=== PATIENT | female | born 1980 | race Caucasian/White ===

== ENCOUNTER 2020-03-20 06:56 | Outpatient (NON) | payer OTHER, SELFPAY ==
[2020-03-20 22:28] LABS: SARS-CoV-2 RNA PCR Negative
== END 2020-03-20 06:57 ==
PROVIDERS: PCP Family Medicine; Visit Provider Physician Assistant
DX: Z20.822 Contact with and (suspected) exposure to COVID-19 (principal)
CPT/HCPCS: C9803; U0003; U0005

== ENCOUNTER → 2020-11-12 04:39 | Outpatient (CLI) | payer OTHER, SELFPAY ==
[2020-11-12 18:26] LABS: SARS-CoV-2 RNA PCR Negative
== END ==
PROVIDERS: PCP Family Medicine; Visit Provider Family Medicine
DX: R10.84 Generalized abdominal pain (principal); R53.82 Chronic fatigue, unspecified
CPT/HCPCS: C9803; U0003; U0005

== ENCOUNTER 2020-11-24 14:13 | Outpatient (CLI) | payer OTHER, SELFPAY | END 2020-11-24 14:14 | disposition home or self-care (01) | LOC: ANHAUDIO 14:15 | PROVIDERS: PCP Family Medicine; Visit Provider Family Medicine | DX: H91.90 Unspecified hearing loss, unspecified ear (principal) | CPT/HCPCS: 92557; 92567 ==

== ENCOUNTER → 2021-03-02 07:42 | Outpatient (CLI) | payer OTHER, SELFPAY ==
[2021-03-03 01:23] LABS: SARS-CoV-2 RNA PCR Positive
== END ==
PROVIDERS: PCP Family Medicine; Visit Provider Family Medicine
DX: U07.1 COVID-19 (principal)
CPT/HCPCS: C9803; U0003; U0005

== ENCOUNTER → 2023-04-05 13:38 | Outpatient (CLI) | payer BC, SELFPAY ==
--- NOTE | ~2023-04-05 | MM_ITS ---
EXAMINATION: MM screening alireza BI w richardson HISTORY: Line screening mammogram TECHNIQUE: Craniocaudal and mediolateral oblique 3-D tomosynthesis images were obtained and synthetic 2-D images were generated. CAD analysis was submitted and interpreted. COMPARISON: None, baseline BREAST PARENCHYMAL COMPOSITION: There are scattered areas of fibroglandular density. FINDINGS: RIGHT BREAST: A focal asymmetry is present in the posterior third of the outer breast 7 cm from the n ipple. LEFT BREAST: An asymmetry is present in the posterior third of the breast 8 cm deep to, and in line w ith, the nipple on the mediolateral oblique view. IMPRESSION: 1. Bilateral breast findings as above. 2. Additional mammographic views and possible breast ultrasound are recommended. BI-RADS Category 0: Incomplete: Needs additional imaging evaluation. Reviewed, dictated and finalized at location A. OP CONSULTANT IMPRESSION: 1. Bilateral breast findings as above. 2. Additional mammographic views and possible breast ultrasound are recommended . BI-RADS Category 0: Incomplete: Needs additional imaging evaluation.
== END ==
PROVIDERS: PCP Obstetrics & Gynecology; Visit Provider Obstetrics & Gynecology
DX: Z12.31 Encounter for screening mammogram for malignant neoplasm of breast (principal); R92.8 Other abnormal and inconclusive findings on diagnostic imaging of breast
CPT/HCPCS: 77063; 77067

== ENCOUNTER 2023-10-24 08:40 | Outpatient (CLI) | payer BC, SELFPAY ==
--- NOTE | ~2023-10-24 | MMUS_ITS ---
EXAMINATION: MM diagnostic alireza BI w richardson, US breast RT limited HISTORY: Follow-up breast asymmetry TECHNIQUE: Additional 3-D tomosynthesis images of breasts were performed and synthetic 2-D images wer e generated. CAD analysis was submitted and interpreted. High resolution Limited right breast ultraso und was performed. COMPARISON: 04/05/2023 BREAST PARENCHYMAL COMPOSITION: Not dense: There are scattered areas of fibroglandular density. FINDINGS: MAMMOGRAPHIC FINDINGS: There are no suspicious masses, calcifications or architectural distortion in the right breast to sug gest malignancy. Bilateral breast asymmetries are not apparent on current study. ULTRASOUND: Limited right breast ultrasound: Normal heterogeneous echotexture without focal solid or cystic mass. IMPRESSION: 1. No evidence for malignancy in either breast. 2. Routine yearly screening mammogram and regular clinical breast examination are recommended. BI-RADS Category 1: Negative Reviewed, dictated and finalized at location B. IMPRESSION: 1. No evidence for malignancy in either breast. 2. Routine yearly screening mammogram and regular clinical breast examination a re recommended. BI-RADS Category 1: Negative
== END 2023-10-24 08:41 | disposition home or self-care (01) ==
PROVIDERS: PCP Family Medicine; Visit Provider Obstetrics & Gynecology
DX: R92.8 Other abnormal and inconclusive findings on diagnostic imaging of breast (principal)
CPT/HCPCS: 76642; 77062; 77066; G0279

== ENCOUNTER 2023-12-26 09:12 | Emergency (ER) | payer BC, SELFPAY ==
[2023-12-26 09:22] VITALS: BP 134/89; PULSE 88; RESP 16; TEMP 37; O2SAT 99
--- NOTE | 2023-12-26 09:30 | ED.ABDPAIN ---
HPI - Abdominal Pain General Chief Complaint: Abdominal Pain Stated Complaint: sent from for abdominal pain Time Seen by Provider: 12/26/23 09:16 History of Present Illness HPI narrative: patient has been having some abdominal discomfort intermittently for the last 2 weeks, was seen at urgent care, had normal urine labs, wanted to make sure everything was okay so came in here. Related Data Home Medications Medication Instructions Recorded Confirmed L.acid,ozzy-B.animal,bifid,infant 1 cap PO DAILY 03/31/22 12/26/23 50 billion cell capsule,delayed rel (Fortify [place] Women Probiotic) fluticasone fur. 100 mcg-umeclid 1 inh inhalation DAILY 03/31/22 12/26/23 62.5 mcg-vilant 25 mcg inhalat.powder (Trelegy Ellipta) levomefolate calcium 15 mg tablet 15 mg PO DAILY 03/31/22 12/26/23 (L-Methylfolate) omega 3-ume-tzr-fish oil 1,000 mg 1 cap PO DAILY 03/31/22 12/26/23 (120 mg-180 mg) capsule (Fish Oil) propranolol 60 mg capsule,24 60 mg PO DAILY 03/31/22 12/26/23 hr,extended release ropinirole 0.5 mg tablet 0.5 mg PO TID 12/26/23 12/26/23 sertraline 100 mg tablet 50 mg PO DAILY 12/26/23 12/26/23 tamsulosin 0.4 mg capsule 0.4 mg PO DAILY 12/26/23 12/26/23 ziprasidone HCl 20 mg capsule 20 mg PO BID 12/26/23 12/26/23 Allergies Allergy/AdvReac Type Severity Reaction Status Date / Time Penicillins AdvReac Mild Rash Verified 12/26/23 09:12 Sulfa (Sulfonamide AdvReac Mild Rash Verified 12/26/23 09:12 Antibiotics) Review of Systems Review of Systems: All systems reviewed & are unremarkable except as noted in HPI and below PMFSH Past Medical History Medical History Allergic rhinitis Bipolar 1 disorder Chronic fatigue, unspecified Cigarette nicotine dependence without complication Fibromyalgia (Unknown) GERD (gastroesophageal reflux disease) Insomnia Mild persistent asthma Obstructive sleep apnea Pure hyperglyceridemia Restless leg syndrome Type 2 diabetes mellitus without complications Surgical History Surgical History History of hernia repair Family History Family History Father Hypertension Diabetes mellitus Hyperlipidemia Mother Hypertension Alcoholism Grandparent Cirrhosis Carcinoma of colon Cerebrovascular accident Diabetes mellitus Social History Social History Smoking status: Current some day smoker Tobacco type: e-cigarettes/vaping Second hand tobacco smoke exposure: No Alcohol intake: current Drinks per week: 1 Alcohol use details: social Substance use: never Substance use type: does not use Do You Feel Safe in your Home?: Yes Lack of Transportation: No Lack of Food: Never True Current Housing: I Have Housing Concerned About Future Housing: No Difficulty Paying Gas/Electric Bills: No Difficulty Paying for Meds: No Currently Unemployed: No Education: Master's Degree or Higher Difficulty w/ Childcare or Family Care: No Living arrangements: with family Occupation/Education: unemployed Gender identity (if verbalized by the patient): Female Sexual Orientation (if Verbalized by the Patient): Straight or Heterosexual Spiritual care concerns: No Exam Narrative: EXAMINATION OF ORGAN SYSTEMS/BODY AREAS: Constitutional: Vital signs per nursing GENERAL:[No acute distress, non-toxic appearing.] HEAD: Normal with no signs of head trauma. EYES: EOMI, conjunctiva normal ENT: Hearing grossly intact LUNGS: Nonlabored breathing. HEART: [Regular rate and rhythm] ABD: [Soft], [nontender to palpation] EXT: Normal range of motion SKIN: [No rashes or lesions.] NEURO: [Alert and oriented x 3. No gross focal sensory or strength deficits.] PSYCH: Normal affect Course Vital Signs Vital signs: Vital Signs Temperature 98.6 F 12/26/23 09:22 Pulse Rate 88 12/26/23 09:22 Respiratory Rate 16 12/26/23 09:22 Blood Pressure 134/89 12/26/23 09:22 Pulse Oximetry 99 12/26/23 09:22 Temperature 98.6 F 12/26/23 09:22 Pulse Rate 88 12/26/23 09:22 Respiratory Rate 16 12/26/23 09:22 Blood Pressure 134/89 12/26/23 09:22 Pulse Oximetry 99 12/26/23 09:22 MDM - Abdominal Pain MDM Narrative Medical decision making narrative: Electronic medical record was reviewed. Patient presented to the ED with complaint of [abdominal pain for a few weeks]. Vitals [were within acceptable limits]. Physical exam revealed soft having without much tenderness. Based on the patient's history and physical exam, my differential includes but is not limited to [gastritis, gastroenteritis, Doubt cholecystitis, pancreatitis, or appendicitis without focal tenderness]. [IV access was established by nursing staff]. CBC, BMP, lipase, LFTs, bilirubin and alk phos were obtained. Labs were pertinent for all labs within acceptable limits. findings discussed with the patient. There were no witnessed episodes of vomiting in the emergency department. They are not complaining of any new abdominal pain. Repeat examination did not show any significant guarding or rebound. No new tenderness. At this time I do not feel there is any further emergent treatment to be provided. The patient was given strict return precautions, if they are to develop any worsening abdominal pain, vomiting, or blood in the vomit they are to return to the emergency department immediately. Patient verbally acknowledges understanding these directions. [The patient was informed of the above diagnostic test findings.] \ They will be discharged home [with prescriptions]. They were advised to follow-up with [their PCP] in 2 days. The patient feels that this is appropriate medical decision making and verbalizes an understanding of the discharge instructions. Lab Data 12/26/23 09:42 12/26/23 09:42 Labs: Lab Results 12/26/23 12/26/23 Range/Units 09:42 09:43 WBC 9.2 (4.5-10.0) K/mm3 RBC 4.52 (4.2-5.4) M/mm3 Hgb 13.8 (12.0-15.0) g/dL Hct 40.9 (37.0-47.0) % MCV 90.5 (80-100) fl MCH 30.5 (26-34) pg MCHC 33.7 (32-36) g/dl RDW 13.4 (11.5-14.5) % Plt Count 168 (150-375) k/mm3 MPV 10.1 (7.4-10.4) fl Immature Gran % (Auto) 1.5 H (0-0.5) % Neut % (Auto) 69.8 (45.5-73.1) % Lymph % (Auto) 17.7 L (18.3-44.2) % [place] % (Auto) 6.5 (2.6-8.5) % Eos % (Auto) 4.0 (0-4.4) % Baso % (Auto) 0.5 (0.2-1.2) % Lymph # (Auto) 1.63 (0.9-3.2) K/mm3 [place] # (Auto) 0.6 (0.1-0.6) K/mm3 Eos # (Auto) 0.4 H (0-0.3) K/mm3 Baso # (Auto) 0.1 (0.0-0.1) K/mm3 Abs Immat Gran (auto) 0.14 H (0.00-0.031) K/mm3 Absolute Neuts (auto) 6.4 (1.3-6.7) K/mm3 Absolute Nucleated RBC 0.000 (0.0-0.012) K/mm3 Nucleated RBC % 0.0 (0.0-0.2) % Sodium 137 (137-145) mmol/L Potassium 4.0 (3.4-5.0) mmol/L Chloride 105 (98-107) mmol/L Carbon Dioxide 26 (22-30) mmol/L Anion Gap 6 (4-12) mmol/L BUN 7 (7-17) mg/dL Creatinine 0.60 L (0.7-1.0) mg/dL Estim Creat Clear Calc 109 ml/min Estimated GFR > 60 (59 - ) Glucose 104 (65-110) mg/dL Calcium 9.6 (8.4-10.2) mg/dL Total Bilirubin 0.4 (0.2-1.3) mg/dL AST 36 (14-36) U/L ALT 40 H (6-35) U/L Alkaline Phosphatase 65 (38-126) U/L Total Protein 7.0 (6.3-8.2) g/dL Albumin 4.2 (3.5-5.1) g/dL Lipase 118 (23-300) U/L Urine Color Yellow (Yellow) Urine Appearance Clear (Clear) Urine pH 7.0 (5.0-9.0) Ur Specific [place] 1.008 (1.001-1.035) Urine Protein Negative (Negative) mg/dL Urine Glucose (UA) Negative (Negative) mg/dL Urine Ketones Negative (Negative) mg/dL Ur Blood (Man) Negative (Negative) Urine Nitrate Negative (Negative) Urine Bilirubin Negative (Negative) Urine Urobilinogen 0.2 (<2.0) mg/dL Leukocyte Esterase Rfl Negative (Negative) CECE/UL Discharge Plan Discharge Clinical Impression: Abdominal pain Patient Disposition: Home, Self-Care Condition: Stable Instructions: Abdominal Pain (ED) Additional Instructions: Please follow up with your doctor; you can always return for any further issues. Prescriptions: New famotidine 20 mg tablet 20 mg PO DAILY Qty: 30 0RF dicyclomine 20 mg tablet 20 mg PO TID PRN (Reason: abdominal pain) Qty: 30 0RF alum-mag hydroxide-simeth [Maalox Advanced] 200-200-20 mg/5 mL suspension 10 ml PO QID PRN (Reason: dyspepsia) Qty: 200 0RF Rx Instructions: administer between meals and at bedtime No Action ropinirole 0.5 mg tablet 0.5 mg PO TID ziprasidone HCl 20 mg capsule 20 mg PO BID tamsulosin 0.4 mg capsule 0.4 mg PO DAILY sertraline 100 mg tablet 50 mg PO DAILY propranolol 60 mg capsule,extended release 24 hr 60 mg PO DAILY Trelegy Ellipta 100-62.5-25 mcg blister with device 1 inh inhalation DAILY Fortify [place] Women Probiotic 50 billion cell capsule,delayed release(DR/EC) 1 cap PO DAILY omega 9-spe-una-fish oil [Fish Oil] 1,000 mg (120 mg-180 mg) capsule 1 cap PO DAILY levomefolate calcium [L-Methylfolate] 15 mg tablet 15 mg PO DAILY pantoprazole 40 mg tablet,delayed release (DR/EC) 40 mg PO QAM Qty: 90 1RF lithium carbonate 300 mg tablet extended release 300 mg PO BID Qty: 180 0RF montelukast 10 mg tablet 10 mg PO DAILY Qty: 90 1RF tizanidine 2 mg tablet 2 mg PO TID PRN (Reason: muscle spasticity) Qty: 90 5RF fluticasone propionate 50 mcg/actuation spray,suspension 1 spray intranasal DAILY Qty: 48 0RF Rx Instructions: administer into each nostril Ozempic 0.25 mg or 0.5 mg (2 mg/3 mL) pen injector See Rx Instructions .ROUTE .COMPLEX Qty: 3 6RF Dose Instruction: ADMINISTER 0.5 MG UNDER THE SKIN WEEKLY FOR 4 WEEKS Rx Instructions: ADMINISTER 0.5 MG UNDER THE SKIN WEEKLY FOR 4 WEEKS clonazepam 1 mg tablet 1 mg PO TID Qty: 90 0RF Follow-up/Referrals: Austin Longoria MD [Primary Care Provider] - 2 Days
[2023-12-26 09:48] LABS: Basophils Absolute Auto 0.1 K/mm3 (0.0-0.1); Basophils Percent Auto 0.5 % (0.2-1.2); Eosinophils Absolute Auto 0.4 K/mm3 (0-0.3); Hematocrit 40.9 % (37.0-47.0); Hemoglobin 13.8 g/dL (12.0-15.0); Immature Granulocyte Absolute 0.14 K/mm3 (0.00-0.031); Immature Granulocyte Percent A 1.5 % (0-0.5); Lymphocytes Absolute Auto 1.63 K/mm3 (0.9-3.2); Lymphocytes Percent Auto 17.7 % (18.3-44.2); Mean Corpuscular HGB Conc 33.7 g/dl (32-36); Mean Corpuscular Hemoglobin 30.5 pg (26-34); Mean Corpuscular Volume 90.5 fl (80-100); Mean Platelet Volume 10.1 fl (7.4-10.4); Monocytes Absolute Auto 0.6 K/mm3 (0.1-0.6); Monocytes Percent Auto 6.5 % (2.6-8.5); Neutrophils Absolute Auto 6.4 K/mm3 (1.3-6.7); Neutrophils Percent Auto 69.8 % (45.5-73.1); Platelet Count Result 168 k/mm3 (150-375); Red Blood Count 4.52 M/mm3 (4.2-5.4); Red Cell Distribution Width 13.4 % (11.5-14.5); White Blood Count 9.2 K/mm3 (4.5-10.0)
[2023-12-26 09:52] LABS: Add Urine Microscopic? NO; Appearance Urine Clear (Clear); Bilirubin Urine Negative (Negative); Blood Urine Negative (Negative); Color Urine Yellow (Yellow); Glucose Urine UA Negative (Negative); Ketones Urine Negative (Negative); Leukocyte Esterase Ur Negative LEU/UL (Negative); Nitrate Urine Negative (Negative); Protein Urine Negative (Negative); Specific Grav Ur 1.008 (1.001-1.035); Urobilinogen Urine 0.2 mg/dL (<2.0)
[2023-12-26 10:02] LABS: Alanine Aminotransferase 40 U/L (6-35); Albumin Level 4.2 g/dL (3.5-5.1); Alkaline Phosphatase 65 U/L (38-126); Anion Gap 6 mmol/L (4-12); Aspartate Amino Transferase 36 U/L (14-36); Bilirubin,Total 0.4 mg/dL (0.2-1.3); Blood Urea Nitrogen 7 mg/dL (7-17); Calcium 9.6 mg/dL (8.4-10.2); Carbon Dioxide 26 mmol/L (22-30); Chloride 105 mmol/L (98-107); Estimated CRCL calculation 109 ml/min; Estimated Glomerular Filt Rate > 60; Glucose 104 mg/dL (65-110); Lipase 118 U/L (23-300); Sodium 137 mmol/L (137-145)
== END 2023-12-26 10:54 | disposition home or self-care (01) ==
PROVIDERS: Emergency Provider Emergency Medicine; PCP Family Medicine
DX: R10.9 Unspecified abdominal pain (principal); E11.9 Type 2 diabetes mellitus without complications; F17.290 Nicotine dependence, other tobacco product, uncomplicated; Z79.899 Other long term (current) drug therapy
CPT/HCPCS: 36415; 80053; 81003; 83690; 85025; 99283

== ENCOUNTER 2024-04-30 13:15 | Emergency (ER) | payer OTHER, SELFPAY ==
--- NOTE | ~2024-04-30 | CT_ITS ---
EXAMINATION: CT abdomen pelvis w con DATE: 04/30/2024 16:02 INDICATION: Nausea, vomiting, and diarrhea. Leukocytosis. TECHNIQUE: Computed tomography (CT) of the abdomen and pelvis was performed with 100 mL Omnipaque 350 intravenous contrast. Automated exposure control and iterative reconstruction technique were employe d. The dose-length product was 833.96 mGy-cm. COMPARISON: CT abdomen and pelvis 03/21/2005 FINDINGS: The visualized portions of lung bases demonstrate mild atelectasis. No pleural effusion. Th e heart size is normal. No pericardial effusion. There is diffuse hepatic steatosis. The gallbladder, spleen, pancreas, adrenal glands, and right kidney are normal. There is a 7 mm cyst in left kidney. There are no dilated loops of bowel. The appendix is normal. There is liquid stool in the colon corre lating with the symptom of diarrhea. There are no pathologically enlarged lymph nodes. There is no fr ee intraperitoneal fluid. There is mild thoracic and lumbar spondylosis. IMPRESSION: 1. No etiology for the patient's symptoms. Reviewed, dictated and finalized at location B.
[2024-04-30 13:17] VITALS: BP 114/81; PULSE 97; RESP 17; TEMP 36.7; O2SAT 98
[2024-04-30 13:57] LABS: BEDSIDEPREGUCG Negative (Negative)
[2024-04-30 13:57] LABS: Basophils Absolute Auto 0.1 K/mm3 (0.0-0.1); Basophils Percent Auto 0.4 % (0.2-1.2); Eosinophils Absolute Auto 0.2 K/mm3 (0-0.3); Eosinophils Percent Auto 1.2 % (0-4.4); Hematocrit 46.7 % (37.0-47.0); Immature Granulocyte Absolute 0.08 K/mm3 (0.00-0.031); Immature Granulocyte Percent A 0.5 % (0-0.5); Lymphocytes Absolute Auto 1.17 K/mm3 (0.9-3.2); Lymphocytes Percent Auto 7.4 % (18.3-44.2); Mean Corpuscular HGB Conc 34.3 g/dl (32-36); Mean Corpuscular Volume 87.5 fl (80-100); Monocytes Absolute Auto 0.8 K/mm3 (0.1-0.6); Monocytes Percent Auto 5.1 % (2.6-8.5); Neutrophils Absolute Auto 13.5 K/mm3 (1.3-6.7); Neutrophils Percent Auto 85.4 % (45.5-73.1); Platelet Count Result 243 k/mm3 (150-375); Red Blood Count 5.34 M/mm3 (4.2-5.4); Red Cell Distribution Width 12.8 % (11.5-14.5); White Blood Count 15.8 K/mm3 (4.5-10.0)
[2024-04-30 14:03] LABS: Add Urine Microscopic? YES; Appearance Urine Turbid (Clear); Bacteria Urine None Seen /hpf; Bilirubin Urine Negative (Negative); Blood Urine 2+ (Negative); Color Urine Dark Yellow (Yellow); Glucose Urine UA Negative (Negative); Ketones Urine 1+ mg/dL (Negative); Leukocyte Esterase Ur Negative LEU/UL (Negative); Nitrate Urine Negative (Negative); Non Pathogenic Casts 0-2; Protein Urine Trace mg/dL (Negative); Specific Grav Ur 1.025 (1.001-1.035); Squamous Epithelial Cell Urine Few /hpf (Few); Urobilinogen Urine 0.2 mg/dL (<2.0); WBC Urine 0-5 /hpf (0-3)
--- NOTE | 2024-04-30 14:10 | ED_ITS ---
HPI - Nausea/Vomiting/Diarrhea General Chief complaint: Nausea/Vomiting/Diarrhea Stated complaint: n/v/d Time Seen by Provider: 04/30/24 13:41 History of Present Illness HPI Narrative: 43-year-old female with a past medical history including bipolar 1, GERD, type 2 diabetes, restless leg syndrome, fibromyalgia. Patient presents to the ED for evaluation of nausea and diarrhea as well as episodes of projectile vomiting. They are intermittent in nature and happen once a week for last several weeks. Recently reported increased dose of Ozempic from 0.5-1. Denies any other recent changes to her regimen her diet. No antibiotic use recently. No fever, chills, abdominal pain. No chest pain shortness a breath. She is otherwise in her normal state of health. Called her primary care provider who referred her to the ER today. Related Data Home Medications ?Medication ?Instructions ?Recorded ?Confirmed ?Last Taken ?Type L.acid,ozzy-B.animal,bifid, 1 cap PO DAILY 03/31/22 03/25/24 Unknown History 50 billion cell capsule,delayed rel (Fortify [place] Women Probiotic) fluticasone fur. 100 mcg-umeclid 1 inh inhalation DAILY 03/31/22 03/25/24 Unknown History 62.5 mcg-vilant 25 mcg inhalat.powder (Trelegy Ellipta) levomefolate calcium 15 mg tablet 15 mg PO DAILY 03/31/22 03/25/24 Unknown History (L-Methylfolate) omega 1-uux-isd-fish oil 1,000 mg 1 cap PO DAILY 03/31/22 03/25/24 Unknown History (120 mg-180 mg) capsule (Fish Oil) propranolol 60 mg capsule,24 60 mg PO DAILY 03/31/22 03/25/24 Unknown History hr,extended release sertraline 100 mg tablet 50 mg PO DAILY 12/26/23 03/25/24 Unknown History brexpiprazole 2 mg tablet (Rexulti) 2 mg PO DAILY 03/25/24 03/25/24 Unknown History cetirizine 10 mg tablet (Zyrtec) 10 mg PO DAILY PRN 03/25/24 03/25/24 Unknown History clonazepam 0.5 mg tablet (Klonopin) 0.5 mg PO TID 03/25/24 03/25/24 Unknown History hydroxyzine HCl 10 mg tablet 10 mg PO TID PRN 03/25/24 03/25/24 Unknown History Allergies Allergy/AdvReac Type Severity Reaction Status Date / Time Penicillins AdvReac Mild Rash Verified 04/30/24 13:23 Sulfa (Sulfonamide AdvReac Mild Rash Verified 04/30/24 13:23 Antibiotics) Review of Systems 2 Review of Systems: As reviewed above in [facility] Past Medical History Medical History Cigarette nicotine dependence in remission Abnormal liver function test Restless leg syndrome Cigarette nicotine dependence without complication Insomnia Fibromyalgia (Unknown) Allergic rhinitis Bipolar 1 disorder Mild persistent asthma GERD (gastroesophageal reflux disease) Obstructive sleep apnea Chronic fatigue, unspecified Type 2 diabetes mellitus without complications Pure hyperglyceridemia Surgical History Surgical History History of hernia repair Family History Family History Father Hypertension Diabetes mellitus Hyperlipidemia Mother Hypertension Alcoholism Grandparent Cirrhosis Carcinoma of colon Cerebrovascular accident Diabetes mellitus Social History Social History Smoking status: Current some day smoker Tobacco type: e-cigarettes/vaping Second hand tobacco smoke exposure: No Alcohol intake: current Drinks per week: 1 Alcohol use details: social Substance use: never Substance use type: does not use Do You Feel Safe in your Home?: Yes Lack of Transportation: No Lack of Food: Never True Current Housing: I Have Housing Concerned About Future Housing: No Difficulty Paying Gas/Electric Bills: No Difficulty Paying for Meds: No Currently Unemployed: No Education: Master's Degree or Higher Difficulty w/ Childcare or Family Care: No Living arrangements: with family Occupation/Education: unemployed Gender identity (if verbalized by the patient): Female Sexual Orientation (if Verbalized by the Patient): Straight or Heterosexual Spiritual care concerns: No Exam 2 Narrative: GENERAL: [Well-appearing, well-nourished, and in no acute distress.] HEAD: [Normocephalic, atraumatic.] EYES: [PERRLA and EOMI.] ENT: Nares clear, no rhinorrhea or epistaxis. Mucous membranes moist. NECK: Supple. CHEST: [Clear to auscultation. No respiratory distress.] HEART: [Regular rate and rhythm]. No murmur heard. [Normal peripheral pulses.] ABDOMEN: [Soft, nondistended], [nontender], [No rigidity or guarding] EXTREMITIES: Normal range of motion. [No edema.] SKIN: Warm, dry, no rash. NEURO: [No focal deficits]. Alert and oriented [x3.] PSYCH: [Normal mood and affect.] Course Vital Signs Vital signs: Vital Signs Temperature 36.7 C 04/30/24 13:17 Pulse Rate 97 04/30/24 13:17 Respiratory Rate 17 04/30/24 13:17 Blood Pressure 114/81 04/30/24 13:17 Pulse Oximetry 98 04/30/24 13:17 Oxygen Delivery Room Air 04/30/24 13:17 Temperature 37.2 C 04/30/24 14:25 Pulse Rate 79 04/30/24 17:31 Respiratory Rate 18 04/30/24 17:31 Blood Pressure 107/80 04/30/24 17:31 Pulse Oximetry 97 04/30/24 17:31 Oxygen Delivery Room Air 04/30/24 13:17 MDM - Nausea/Vomiting/Diarrhea MDM Narrative Medical decision making narrative: 43-year-old female with history of GERD, bipolar depression, type 2 diabetes, nicotine abuse, fibromyalgia. Patient presents to the ER for nonspecific nausea, vomiting and diarrhea there are intermittent in nature for last several weeks. She states that about once a week she has an episode of projectile vomiting and diarrhea that resolves the next time she has to go the bathroom. She has normal bouts of regular bowel movements without any nauseousness or vomiting for several days. Recent dose increase on her Ozempic. Denies any abdominal pain. She has a soft nontender nondistended abdomen. Normal vital signs. No tachycardia, fever, hypoxia blood pressure concerns. Considerations presently are for potential side effect Ozempic, electrolyte disturbances, irritable bowel disease. Low suspicion intra-abdominal process such as obstruction given her reassuring vitals, reassuring exam and no persistent symptoms. Viral syndrome gastroenteritis also possible. Workup ordered including CBC, CMP, lipase, urinalysis. Presently she is asymptomatic with normal vital signs. No needed interventions at this time. Workup shows a small leukocytosis of 15.8, hemoglobin 16.0 likely hemoconcentrated. Normal platelets. Electrolytes showed normal potassium, sodium and chloride. Normal renal function, normal glucose and LFTs. Urine without signs of infection. Negative test. CT scan was ordered secondary to the leukocytosis to see if there is any infectious or intra- abdominal pathology. CT shows no evidence of any acute findings. Patient remained hemodynamically stable here without any nausea vomiting or diarrhea. She will be sent home with as needed Zofran and referred back to her PCP. Medical Records Attestation: I reviewed the patient's medical records. Lab Data Attestation: I reviewed the patient's lab results. 04/30/24 13:44 04/30/24 13:44 Labs: Lab Results 04/30/24 04/30/24 Range/Units 13:44 13:54 WBC 15.8 H (4.5-10.0) K/mm3 RBC 5.34 (4.2-5.4) M/mm3 Hgb 16.0 H (12.0-15.0) g/dL Hct 46.7 (37.0-47.0) % MCV 87.5 (80-100) fl MCH 30.0 (26-34) pg MCHC 34.3 (32-36) g/dl RDW 12.8 (11.5-14.5) % Plt Count 243 (150-375) k/mm3 MPV 10.0 (7.4-10.4) fl Immature Gran % (Auto) 0.5 (0-0.5) % Neut % (Auto) 85.4 H (45.5-73.1) % Lymph % (Auto) 7.4 L (18.3-44.2) % [place] % (Auto) 5.1 (2.6-8.5) % Eos % (Auto) 1.2 (0-4.4) % Baso % (Auto) 0.4 (0.2-1.2) % Lymph # (Auto) 1.17 (0.9-3.2) K/mm3 [place] # (Auto) 0.8 H (0.1-0.6) K/mm3 Eos # (Auto) 0.2 (0-0.3) K/mm3 Baso # (Auto) 0.1 (0.0-0.1) K/mm3 Abs Immat Gran (auto) 0.08 H (0.00-0.031) K/mm3 Absolute Neuts (auto) 13.5 H (1.3-6.7) K/mm3 Absolute Nucleated RBC 0.000 (0.0-0.012) K/mm3 Nucleated RBC % 0.0 (0.0-0.2) % Sodium 141 (137-145) mmol/L Potassium 4.2 (3.4-5.0) mmol/L Chloride 105 (98-107) mmol/L Carbon Dioxide 19 L (22-30) mmol/L Anion Gap 17 H (4-12) mmol/L BUN 15 D (7-17) mg/dL Creatinine 0.74 (0.7-1.0) mg/dL Estim Creat Clear Calc 94 ml/min Estimated GFR > 60 (59 - ) Glucose 125 H (65-110) mg/dL Calcium 9.8 (8.4-10.2) mg/dL Total Bilirubin 1.2 (0.2-1.3) mg/dL AST 36 (14-36) U/L ALT 50 H (6-35) U/L Alkaline Phosphatase 83 (38-126) U/L Total Protein 8.0 (6.3-8.2) g/dL Albumin 5.2 H (3.5-5.1) g/dL Lipase 87 (23-300) U/L Urine Color Dark yellow (Yellow) Urine Appearance Turbid H (Clear) Urine pH 5.0 (5.0-9.0) Ur Specific [place] 1.025 (1.001-1.035) Urine Protein Trace (Negative) mg/dL Urine Glucose (UA) Negative (Negative) mg/dL Urine Ketones 1+ H (Negative) mg/dL Ur Blood (Man) 2+ H (Negative) Urine Nitrate Negative (Negative) Urine Bilirubin Negative (Negative) Urine Urobilinogen 0.2 (<2.0) mg/dL Leukocyte Esterase Rfl Negative (Negative) CECE/UL Urine RBC 3-5 H (0-2) /hpf Urine WBC 0-5 (0-3) /hpf Ur Squamous Epith Cells Few (Few) /hpf Urine Bacteria None seen /hpf Urine Casts 0-2 POC Urine HCG, Qual Negative (Negative) Imaging Data Attestation: I personally reviewed and interpreted this imaging study as follows: My impression: Impressions Abdomen/Pelvis CT 04/30/24 16:04 IMPRESSION: 1. No etiology for the patient's symptoms. Discharge Plan Discharge Clinical Impression: Nausea & vomiting, Diarrhea Patient Disposition: Home, Self-Care Condition: Stable Instructions: Antibiotic Form, Acute Nausea and Vomiting (ED), Acute Diarrhea (ED) Additional Instructions: Your CT scan and laboratory studies were very reassuring. No urgent or emergent concerns. Call your regular doctor for close follow-up as this could be secondary to your Ozempic. We will send you home with Cassie as needed. Return with any new or worsening concerns at any time. Patient Language: Kiswahili Prescriptions: New ondansetron 4 mg tablet,disintegrating 4 mg PO Q8H PRN (Reason: nausea and vomiting) Qty: 10 0RF No Action sertraline 100 mg tablet 50 mg PO DAILY cetirizine [Zyrtec] 10 mg tablet 10 mg PO DAILY PRN Rexulti 2 mg tablet 2 mg PO DAILY hydroxyzine HCl 10 mg tablet 10 mg PO TID PRN clonazepam [Klonopin] 0.5 mg tablet 0.5 mg PO TID propranolol 60 mg capsule,extended release 24 hr 60 mg PO DAILY Trelegy Ellipta 100-62.5-25 mcg blister with device 1 inh inhalation DAILY Fort[employer] Probiotic 50 billion cell capsule,delayed release(DR/EC) 1 cap PO DAILY omega 2-ufu-ivj-fish oil [Fish Oil] 1,000 mg (120 mg-180 mg) capsule 1 cap PO DAILY levomefolate calcium [L-Methylfolate] 15 mg tablet 15 mg PO DAILY tizanidine 2 mg tablet 2 mg PO TID PRN (Reason: muscle spasticity) Qty: 90 5RF pantoprazole 40 mg tablet,delayed release (DR/EC) 40 mg PO QAM Qty: 90 1RF fluticasone propionate 50 mcg/actuation spray,suspension 1 spray intranasal DAILY Qty: 48 0RF Rx Instructions: administer into each nostril Ozempic 1 mg/dose (4 mg/3 mL) pen injector 1 mg subcut WEEKLY Qty: 3 0RF Follow-up/Referrals: Austin Longoria MD [Primary Care Provider] - Time of Disposition: 17:52
[2024-04-30 14:11] LABS: Alanine Aminotransferase 50 U/L (6-35); Albumin Level 5.2 g/dL (3.5-5.1); Alkaline Phosphatase 83 U/L (38-126); Anion Gap 17 mmol/L (4-12); Aspartate Amino Transferase 36 U/L (14-36); Bilirubin,Total 1.2 mg/dL (0.2-1.3); Blood Urea Nitrogen 15 mg/dL (7-17); Calcium 9.8 mg/dL (8.4-10.2); Carbon Dioxide 19 mmol/L (22-30); Chloride 105 mmol/L (98-107); Estimated CRCL calculation 94 ml/min; Estimated Glomerular Filt Rate > 60; Glucose 125 mg/dL (65-110); Lipase 87 U/L (23-300); Potassium 4.2 mmol/L (3.4-5.0); Sodium 141 mmol/L (137-145)
[2024-04-30 14:25] VITALS: BP 117/82; PULSE 95; RESP 16; TEMP 37.2; O2SAT 97
--- OUTSIDE RECORDS SUMMARY | 2024-04-30 14:50 | XMS_ITS | Data Portability ---
Author Organization [place] [facility] [employer] Address [address] [place] [address] Care Team Providers Care Coal Inspector Name Role Phone JASON WADSWORTH Psychiatrist YOLY FRANCISCO Sleep Medicine Assessment Encounter Date Assessment Date Assessment LastModified by Organization Details LastModified Time 04/05/2022 04/05/2022 Medication Munguia es Caplyta 42 mg qD samples given x 2 weeks ADRY obtained. Records requested labs obtained to check lithium levels along with CBC, CMP. Counseled Kerline on the concern about benzos usage. Anxiety, practice guidelines now recommend psychotherapy approaches and antidepressants as the initial treatment for anxiety. Continued usage of medications increases worsening cognition, delirium, and falls. Benzodiazepines are associated with statistically significant, negative effects for the cognitive domains of working memory, processing speed, divided attention, visuoconstruction, recent memory, and expressive language that may not resolve after cessation. Will get Kerline stablized on medication regimen before tackling benzos which she agreed and v/u. Counseled on usage of medication. Discussed the purpose of the medication, the classification of the medication. Counseled on SE, AR, administration. Counseled on risks, benefits, plan, outcome of medication. Signs and symptoms of when to seek further care reviewed with patient/caregiver/ family/facility staff. Patient to follow up with primary care provider or return to clinic for any worsening signs and symptoms. Always present to ER or Urgent Care with any progression of/alarming symptoms, significant changes in symptoms or any concerning or urgent matters. Patient/caregiver/ family/facility staff verbalized agreement and understanding of treatment plan. F/U 2 weeks, sooner if needed for mental health My total encounter time was 90 minutes which was spent in the activities documented in the note. This includes time spent prior to the visit, performing a medically appropriate examination with evaluation, and after the visit in direct care of the patient (history and exam; ordering prescriptions/labs /imaging/home health/therapy/spe cialists; communicating results to patient and/or other relative individuals; counseling/educati ng patient; documenting clinical information in patient s chart; coordination of care for the patient). This time does not include time spent in any separately reportable services. [email or web address] Not available 04/05/2022 12:27:32 Plan of Treatment Reminders Order Date Submit Date Provider Last Modified By Organization Details Last Modified Time Details Appointments None recorded. Lab drug screen, urine 2022 023 [facility], [address], [place], [address], 3 13:37:47 CMP, serum or plasma 2022 023 [facility], [address] [place], [address], 3 08:25:53 CBC 2022 023 [facility], [address] [place], [address], 3 08:25:54 lithium, serum 2022 023 [place] [address] [facility], [address] [place], [address], 3 10:14:18 urinalysis , complete 2022 023 [facility], [address] [place], [address], 3 08:25:54 Referral None recorded. Procedures None recorded. Surgeries None recorded. Imaging None recorded. Medication Orders Caplyta 42 mg capsule 2022 023 [email or web address] [id number], [address], [place], [id number], 10:33:43 Patient TargetsNo targets recorded. Patient InstructionsNo instructions recorded. Reason for Referral None Reported. Results Created Date Observation Date Name Description Value Unit Range Abnormal Flag Note LastModifiedBy Organization Detail LastModifiedTime 04/05/1904/06/2022 COMPR EHENS RENEA METAB OLIC PANEL glucose 84 mg/dL 65-99 normal Fasti ng refer ence inter maría elena Not Available [address], [address], 04/06/2022 09:19:51 04/05/1904/06/2022 COMPR EHENS RENEA METAB OLIC PANEL urea nitrogen (BUN) 12 mg/dL 7-25 normal Not Available [address], [address], 04/06/2022 09:19:51 04/05/1904/06/2022 COMPR EHENS RENEA METAB OLIC PANEL creatinine 0.88 mg/dL 0.50-0 .99 normal Not Available [address], [address], 04/06/2022 09:19:51 04/05/1904/06/2022 COMPR EHENS RENEA METAB OLIC PANEL eGFR 84 mL/mi n/1.7 3m2 > or = 60 normal The eGFR is based on the CKD-E PI 2020 equat ion. To calcu late the new eGFR from a previ ous Creat inine or Cysta tin C resul t, go to https ://yaritza w.phoebe frenchy.o navdeep/brian cosme s/ kdoqi /gfr% 5Fcal culat or Not Available [address], [address], 04/06/2022 09:19:51 04/05/19 23 04/06/2022 COMPR EHENS RENEA METAB OLIC PANEL BUN/creatini ne ratio NOT APPLIC ABLE (calc ) 6-22 Not Available [address], [address], 04/06/2022 09:19:51 04/05/19 23 04/06/2022 COMPR EHENS RENEA METAB OLIC PANEL sodium 140 mmol/ L 135-14 6 normal Not Available [address], [address], 04/06/2022 09:19:51 04/05/19 23 04/06/2022 COMPR EHENS RENEA METAB OLIC PANEL potassium 4.4 mmol/ L 3.5-5. 3 normal Not Available [address], [address], 04/06/2022 09:19:51 04/05/19 23 04/06/2022 COMPR EHENS RENEA METAB OLIC PANEL chloride 104 mmol/ L 98-110 normal Not Available [address], [address], 04/06/2022 09:19:51 04/05/19 23 04/06/2022 COMPR EHENS RENEA METAB OLIC PANEL carbon dioxide 30 mmol/ L 20-32 normal Not Available [address], [address], 04/06/2022 09:19:51 04/05/19 23 04/06/2022 COMPR EHENS RENEA METAB OLIC PANEL calcium 10.7 mg/dL 8.6-10 .2 high Not Available [address], [address], 04/06/2022 09:19:51 04/05/19 23 04/06/2022 COMPR EHENS RENEA METAB OLIC PANEL protein, total 7.5 g/dL 6.1-8. 1 normal Not Available [address], [address], 04/06/2022 09:19:51 04/05/19 23 04/06/2022 COMPR EHENS RENEA METAB OLIC PANEL albumin 5.2 g/dL 3.6-5. 1 high Not Available [address], [address], 04/06/2022 09:19:51 04/05/19 23 04/06/2022 COMPR EHENS RENEA METAB OLIC PANEL globulin 2.3 g/dL_ (calc ) 1.9-3. 7 normal Not Available [address], [address], 04/06/2022 09:19:51 04/05/19 23 04/06/2022 COMPR EHENS RENEA METAB OLIC PANEL albumin/glob ulin ratio 2.3 (calc ) 1.0-2. 5 normal Not Available [address], [address], 04/06/2022 09:19:51 04/05/19 23 04/06/2022 COMPR EHENS RENEA METAB OLIC PANEL bilirubin, total 0.4 mg/dL 0.2-1. 2 normal Not Available [address], [address], 04/06/2022 09:19:51 04/05/19 23 04/06/2022 COMPR EHENS ERNEA METAB OLIC PANEL alkaline phosphatase 60 U/L 31-125 normal Not Available [address], [address], 04/06/2022 09:19:51 04/05/19 23 04/06/2022 COMPR EHENS RENEA METAB OLIC PANEL AST 23 U/L 10-30 normal Not Available [address], [address], 04/06/2022 09:19:51 04/05/19 23 04/06/2022 COMPR EHENS RENEA METAB OLIC PANEL ALT 24 U/L 6-29 normal Not Available [address] [place], [address], 04/06/2022 09:19:51 04/05/1904/06/2022 CBC (H/H, RBC, INDIC ES, WBC, PLT) white blood cell count 9.0 thous and/u L 3.8-10 .8 normal Not Available [facility] [address], [address], 04/06/2022 08:25:54 04/05/19 23 04/06/2022 CBC (H/H, RBC, INDIC ES, WBC, PLT) red blood cell count 5.17 merry on/uL 3.80-5 .10 high Not Available [facility] [address], [address], 04/06/2022 08:25:54 04/05/19 23 04/06/2022 CBC (H/H, RBC, INDIC ES, WBC, PLT) hemoglobin 15.2 g/dL 11.7-1 5.5 normal Not Available [facility] [address], [address], 04/06/2022 08:25:54 04/05/19 23 04/06/2022 CBC (H/H, RBC, INDIC ES, WBC, PLT) hematocrit 45.0 % 35.0-4 5.0 normal Not Available [facility] [address], [address], 04/06/2022 08:25:54 04/05/1904/06/2022 CBC (H/H, RBC, INDIC ES, WBC, PLT) MCV 87.0 fL 80.0-1 00.0 normal Not Available [facility] [address], [address], 04/06/2022 08:25:54 04/05/19 23 04/06/2022 CBC (H/H, RBC, INDIC ES, WBC, PLT) MCH 29.4 pg 27.0-3 3.0 normal Not Available [facility] [address], [place], [address], 04/06/2022 08:25:54 04/05/1904/06/2022 CBC (H/H, RBC, INDIC ES, WBC, PLT) MCHC 33.8 g/dL 32.0-3 6.0 normal Not Available [address], [address], 04/06/2022 08:25:54 04/05/19 23 04/06/2022 CBC (H/H, RBC, INDIC ES, WBC, PLT) RDW 12.3 % 11.0-1 5.0 normal Not Available [address], [address], 04/06/2022 08:25:54 04/05/1904/06/2022 CBC (H/H, RBC, INDIC ES, WBC, PLT) platelet count 197 thous and/u L 140-40 0 normal Not Available [address], [address], 04/06/2022 08:25:54 04/05/1904/06/2022 CBC (H/H, RBC, INDIC ES, WBC, PLT) MPV 10.8 fL 7.5-12 .5 normal Not Available [address], [address], 04/06/2022 08:25:54 04/05/19 23 04/06/2022 URINA LYSIS , COMPL ETE color YELLOW yellow normal Not Available [facility] [address], [address], 04/06/2022 08:25:54 04/05/19 23 04/06/2022 URINA LYSIS , COMPL ETE appearance CLEAR clear normal Not Available [facility] [address], [address], 04/06/2022 08:25:54 04/05/19 23 04/06/2022 URINA LYSIS , COMPL ETE specific gravity 1.004 1.001- 1.035 normal Not Available [address], [address], 04/06/2022 08:25:54 04/05/19 23 04/06/2022 URINA LYSIS , COMPL ETE pH 7.0 5.0-8. 0 normal Not Available [address] [place], [address], 04/06/2022 08:25:54 04/05/19 23 04/06/2022 URINA LYSIS , COMPL ETE glucose NEGATI VE negati ve normal Not Available [address], [address], 04/06/2022 08:25:54 04/05/19 23 04/06/2022 URINA LYSIS , COMPL ETE bilirubin NEGATI VE negati ve normal Not Available [facility] [address] [place], [address], 04/06/2022 08:25:54 04/05/19 23 04/06/2022 URINA LYSIS , COMPL ETE ketones NEGATI VE negati ve normal Not Available [facility] [address], [address], 04/06/2022 08:25:54 04/05/19 23 04/06/2022 URINA LYSIS , COMPL ETE occult blood NEGATI VE negati ve normal Not Available [facility] [address], [address], 04/06/2022 08:25:54 04/05/19 23 04/06/2022 URINA LYSIS , COMPL ETE protein NEGATI VE negati ve normal Not Available [facility] [address] [place], [address], 04/06/2022 08:25:54 04/05/19 23 04/06/2022 URINA LYSIS , COMPL ETE nitrite NEGATI VE negati ve normal Not Available [address], [address], 04/06/2022 08:25:54 04/05/19 23 04/06/2022 URINA LYSIS , COMPL ETE leukocyte esterase TRACE negati ve abnormal Not Available [address], [address], 04/06/2022 08:25:54 04/05/19 23 04/06/2022 URINA LYSIS , COMPL ETE WBC NONE SEEN /hpf < or = 5 normal Not Available [address], [address], 04/06/2022 08:25:54 04/05/19 23 04/06/2022 URINA LYSIS , COMPL ETE RBC NONE SEEN /hpf < or = 2 normal Not Available [address], [address], 04/06/2022 08:25:54 04/05/19 23 04/06/2022 URINA LYSIS , COMPL ETE squamous epithelial cells 0-5 /hpf < or = 5 Not Available [address], [address], 04/06/2022 08:25:54 04/05/19 23 04/06/2022 URINA LYSIS , COMPL ETE bacteria NONE SEEN /hpf none seen normal Not Available [address], [address], 04/06/2022 08:25:54 04/05/19 23 04/06/2022 URINA LYSIS , COMPL ETE hyaline cast NONE SEEN /lpf none seen normal Not Available [address], [address], 04/06/2022 08:25:54 04/05/19 23 04/06/2022 LITHI UM lithium 0.8 mmol/ L 0.6-1. 2 normal Not Available [facility] [address] [facility], [place], [address], 04/06/2022 10:17:29 Result Notes None recorded. Problems Name Problem SNOMED Code Status Onset Date Resolution Date Notes Provider Name and Address Organization Details Recorded Time Bipolar II disorder 30260929 Active 2022 SRAVANTHI Ambriz-, PMHNP-BC [address] [place], [address] , [facility] 3 12:24:48 Generalized anxiety disorder 44315204 Active 2022 SRAVANTHI Ambriz-BRADEN, PMHNP-BC [address] [place], [address] , [facility] 3 12:27:39 Screening for disorder Active 2022 Linda Peres [facility], [facility] 3 13:42:07 History of drug abuse 832130209 Active 2022 Linda Peres [facility], [facility] 3 13:42:08 Long-term drug therapy Active 2022 Linda Peres [facility], [facility] 3 13:42:13 Problem Notes None recorded. Procedures Surgical History Date Name Laterality Status Provider Name and Address Organization Details Recorded Time ligation of fallopian tube completed Radha Allan [facility] 04/05/2022 10:04:27 hernia repair completed Radha Allan [facility] 04/05/2022 10:04:35 Imaging Results None recorded. Procedure Notes None recorded. Medical Equipment None Reported. Allergies Allergen ID Allergen Name Allergen Category Reaction Reaction Severity Criticality Documentation Date Start Date Code Code System Note Provider Name and Address Organization Details Recorded Time 5832 Product containin g penicilli n (product) medicatio n hives Not available Not available 04/05/2022 04033 8001 [facility] 3 09:06:09 5833 Substance with sulfonami de structure and antibacte rial mechanism of action (substanc e) medicatio n hives Not available Not available 04/05/2022 14354 8003 SNOMED Radha Allan [facility] 3 09:06:25 5834 Risperdal medicatio n Not available Not available Not available 04/05/2022 54883 8 RxNorm Crystal LDamián Milad, AUTOCAD DESIGNER-BC, PMHNP-BC [address] [place], [address] , [facility] 3 09:30:24 5891 saxaglipt in medicatio n nausea Not available Not available 04/17/2022 12036 4 RxNorm Analyn [facility] 3 14:38:33 Medications Name Sig Start Date Stop Date Status Note LastModified by Organization Details LastModified Time tizanidin e 2 mg tablet Take 1 tablet every day by oral route as needed for 10 days. active Not Available Not Available No t Available fluconazo le 150 mg tablet TAKE 1 TABLET BY MOUTH 1 TIME. MAY REPEAT 1 TIME IN 1 WEEK NEEDED active Not Available Not Available No t Available dextroamp hetamine- amphetami ne 10 mg tablet TAKE 1 TABLET BY MOUTH TWICE DAILY 04/05 completed Not Available Not Available Not Available rizatript an 10 mg tablet TAKE 1 TABLET BY MOUTH AT ONSET OF HEADACHE . MAY REPEAT IN 2 HOURS. NOT TO EXCEED 2 TABLETS IN 24 HOURS active Not Available Not Available No t Available propranol ol ER 60 mg capsule,2 4 hr,extend ed release Take 1 capsule every day by oral route for 30 days. active Not Available Not Available No t Available sertralin e 100 mg tablet Take 1.5 tablets every day by oral route for 30 days. active Not Available Not Available No t Available clonazepa m 1 mg tablet Take 1 mg 3 times a day by oral route for 30 days. active Not Available Not Available No t Available lithium carbonate ER 300 mg tablet,ex tended release Take 1 tablet twice a day by oral route for 90 days. active Not Available Not Available No t Available famotidin e 20 mg tablet Take 1 tablet every day by oral route in the evening. active Not Available Not Available No t Available dextroamp hetamine- amphetami ne 15 mg tablet TAKE 1 TABLET BY MOUTH TWICE DAILY 04/05 completed Not Available Not Available Not Available gabapenti n 300 mg capsule Take 1 capsule every day by oral route at bedtime for 34 days. active Not Available Not Available No t Available monteluka st 10 mg tablet TAKE 1 TABLET BY MOUTH EVERY DAY IN THE EVENING active Not Available Not Available No t Available albuterol sulfate HFA 90 mcg/actua tion aerosol inhaler INHALE 2 PUFFS BY MOUTH EVERY 6 HOURS NEEDED active Not Available Not Available No t Available propranol ol 20 mg tablet Take by oral route for 30 days. 04/05 completed Not Available Not Available Not Available fluticaso ne propionat e 50 mcg/actua tion nasal spray,corin pension SHAKE LIQUID AND USE 2 SPRAYS IN EACH NOSTRIL EVERY DAY active Not Available Not Available No t Available loratadin e 10 mg tablet Take 1 tablet every day by oral route at bedtime. active Not Available Not Available No t Available memantine 10 mg tablet TITRATE DIRECTED TO 1 TABLET TWICE A DAY active Not Available Not Available No t Available multivita min Take 1 tablet once a day active Not Available Not Available No t Available varenicli ne tartrate 0.5 mg tablet TAKE 1 TABLET BY MOUTH EVERY DAY FOR 3 DAYS THEN TAKE 1 TABLET BY MOUTH TWICE DAILY FOR 4 DAYS THEN TAKE 2 TABLETS BY MOUTH TWICE DAILY 04/05 completed Not Available Not Available Not Available L-Methylf olate 15 mg tablet Take 1 tablet every day by oral route. active Not Available Not Available No t Available Fish Oil 1,000 mg (120 mg-180 mg) capsule Take 1 capsule every day by oral route. active Not Available Not Available No t Available Trelegy Ellipta 100 mcg-62.5 mcg-25 mcg powder for inhalatio n INHALE 1 PUFF BY MOUTH EVERY DAY active Not Available Not Available No t Available Ozempic 0.25 mg or 0.5 mg (2 mg/1.5 mL) subcutane ous pen injector Inject 0.5 mg every week by sub-q route for 28 days. active Not Available Not Available No t Available Caplyta 42 mg capsule Take 1 capsule every day by oral route. 2022 active Samples given Not Available Not Available Not Available Fortify [place] Probiotic 50 billion cell capsule,d elayed release Take 2 capsules every day by oral route. active Not Available Not Available No t Available Vitals Date Recorded Oxygen saturation Oxygen saturation in Arterial blood by Pulse oximetry Body temperature Heart rate Respiratory rate Body weight Body mass index (BMI) Body height Pain severity - 0-10 verbal numeric rating [Score] - Reported Systolic blood pressure Diastolic blood pressure Provider Name and Address Organization Details Last Updated DateTime 100 % 100 % 98.8 [degF] 88 /min 20 /min 18895.5 1 g 28.1 kg/m2 167.64 cm 0 134 mm[Hg] 83 mm[Hg] Radha Jerrell [facility] 09:20:43 Social History Question Answer Notes LastModified by Organizat ion Details LastModified Time Tobacco Smoking Status Former Smoker Radha Jerrell [facility] 04/05/2022 09:26:35 Do You Have An Advance Directive? No [email or web address] Information not available 04/05/2022 What Is Your Level Of Alcohol Consumption? Occasional [email or web address] Information not available 04/05/2022 How Many Times Per Week Do You Consume Alcohol? Less Than 1 Time Per Week [email or web address] Information not available 04/05/2022 How Many Years Have You Consumed Alcohol? 20 [email or web address] Information not available 04/05/2022 Are You Currently Sexually Active With Anyone Who Has Traveled (within The Last 12 Weeks) To A Zika-affected Area? No Information not available 04/05/2022 Do You Wear A Helmet When Biking? No [email or web address] Information not available 04/05/2022 Are You Blind Or Do You Have Difficulty Seeing? No Information not available 04/05/2022 Is Blood Transfusion Acceptable In An Emergency? Yes [email or web address] Information not available 04/05/2022 What Is Your Level Of Caffeine Consumption? Moderate [email or web address] Information not available 04/05/2022 What Type Of Vp Of Product Do You Use? None [email or web address] Information not available 04/05/2022 What Is Your Code Status? Full Code [email or web address] Information not available 04/05/2022 In The 14 Days Before Symptom Onset, Have You Had Close Contact With A Laboratory-confir med COVID-19 While That Case Was Ill? No [email or web address] Information not available 04/05/2022 In The 14 Days Before Symptom Onset, Have You Had Close Contact With A Person Who Is Under Investigation For COVID-19 While That Person Was Ill? No Information not available 04/05/2022 Have You Been To An Area Known To Be High Risk For COVID-19? No [email or web address] Information not available 04/05/2022 Are You Currently Employed? No [email or web address] Information not available 04/05/2022 Are You Deaf Or Do You Have Serious Difficulty Hearing? No [email or web address] Information not available 04/05/2022 What Type Of Diet Are You Following? REGULAR [email or web address] Information not available 04/05/2022 Have You Processed Blood Or Body Fluids From An Ebola Virus Disease Patient Without Appropriate PPE? No [email or web address] Information not available 04/05/2022 Do You Reside In Or Have You Traveled To An Area Where Ebola Virus Transmission Is Active? No [email or web address] Information not available 04/05/2022 Do You Or Have You Ever Used E-cigarettes Or Vape? Current User Of Electronic Cigarettes [email or web address] Information not available 04/05/2022 What Is The Highest Grade Or Level Of School You Have Completed Or The Highest Degree You Have Received? [id number] [email or web address] Information not available 04/05/2022 Have There Been Any Changes To Your Family Or Social Situation? No [email or web address] Information no t available 04/05/2022 When Did You Quit Smoking? 1-5yearssincel astcigarette [email or web address] Information not available 04/05/2022 Are There Any Guns Present In Your Home? No Information not available 04/05/2022 Which Of Your Hands Is Dominant? Right [email or web address] Information not available 04/05/2022 Have You Recently Or Are You Planning To Travel To An Area With Zika Virus? No Information not available 04/05/2022 Do You Have A Medical Power Of Medical Claims Examiner? No [email or web address] Information not available 04/05/2022 What Was The Date Of Your Most Recent Tobacco Screening? 04/05/2022 [email or web address] Information not available 04/05/2022 How Many Children Do You Have? 2 [email or web address] Information not available 04/05/2022 What Is Your Current Pack Years? 10-19packyears [email or web address] Information not available 04/05/2022 Have You Ever Been Counseled For Unhealthy Alcohol Use? No Information not available 04/05/2022 Do You Have Any Pets? Yes [email or web address] Information not available 04/05/2022 Do You Use Protection During Sex? No [email or web address] Information not available 04/05/2022 What Is Your Relationship Status? [email or web address] Information not available 04/05/2022 Do You Use Your Seat Belt Or Car Seat Routinely? Yes Information not available 04/05/2022 Are You Sexually Active? Yes [email or web address] Information not available 04/05/2022 Do You Have Smoke And Carbon Monoxide Detectors In Your Home? Yes [email or web address] Information not available 04/05/2022 At What Age Did You Start Smoking Tobacco? 14 [email or web address] Information not available 04/05/2022 Are You Passively Exposed To Smoke? No Information no t available 04/05/2022 Do You Or Have You Ever Used Smokeless Tobacco? Never Used Smokeless Tobacco [email or web address] Information not available 04/05/2022 Do You Feel Stressed (tense, Restless, Nervous, Or Anxious, Or Unable To Sleep At Night)? [id number] [email or web address] Information not available 04/05/2022 Do You Use Any Illicit Or Recreational Drugs? No [email or web address] Information not available 04/05/2022 Do You Use Sunscreen Routinely? No [email or web address] Information not available 04/05/2022 How Many Years Have You Smoked Tobacco? 13 [email or web address] Information not available 04/05/2022 Have You Recently Traveled Abroad? No [email or web address] Information not available 04/05/2022 Are You Currently In School? No [email or web address] Information not available 04/05/2022 Do You Have Any Dietary Restrictions? No Information not available 04/05/2022 Do You Or Have You Ever Used Any Other Forms Of Tobacco Or Nicotine? Yes [email or web address] Information not available 04/05/2022 How Many Years Have You Used E-cigarettes Or Vape? 5 [email or web address] Information not available 04/05/2022 Sex: Female Functional Status Question Answer Note LastModified by Organizat ion Details LastModified Time Do you have difficulty walking or climbing stairs? No Information not available 04/05/2022 Do you have transportation difficulties? No [email or web address] Information not available 04/05/2022 Are you able to walk? [email or web address] Information not available 04/05/2022 Do you have difficulty doing errands alone? No [email or web address] Information not available 04/05/2022 Are you able to care for yourself? No Information not available 04/05/2022 Do you have difficulty dressing or bathing? No [email or web address] Information not available 04/05/2022 What is your exercise level? None [email or web address] Information not available 04/05/2022 Mental Status Question Answer Note LastModified by Organization D etails LastModified Time Do you have difficulty concentrating, remembering or making decisions? No [email or web address] Information no t available 04/05/2022 Family History Relationship Description Onset Age of this Age Resolved Age Notes LastModified by Organization Details LastModified Time Mother Alcohol abuse [id number] Not available 2022 09:17:25 Mother Fibromyalgia [id number] Not avai lable 04/05/2022 10:04:13 Mother Scleredema Not availa ble 04/05/2022 10:04:53 Mother Wernicke's disease [id number] Not available 2022 10:07:19 Brother Bipolar disorder [email or web address] Not available 2022 09:18:40 Brother Suicidal intent [email or web address] Not available 2022 09:18:49 Brother Body dysmorphic disorder Not available 2022 09:18:59 Brother Panic attack [id number] Not sridhar ilable 04/05/2022 09:19:11 Brother Exposing self in public [id number] Not available 2022 09:20:11 Brother Rheumatoid arthritis [id number] Not available 2022 10:07:52 Brother Institutiona lized Not available 2022 10:09:27 Brother Alcohol abuse [id number] Not available 2022 10:09:34 Brother Legal problem Not available 2022 10:11:12 Daughter Attention deficit hyperactivit y disorder [email or web address] Not available 04/05 09:25:43 Father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
--- OUTSIDE RECORDS SUMMARY | 2024-04-30 14:50 | XMS_ITS | Clinical Summary ---
Author Organization [facility] Address [address] [place] [address] Care Team Providers Care Applications Chemist Name Role Phone Austin Longoria MD Primary Care Provider [phone] Source Comments [facility],non-owned Affiliates and Associated Physician Practices is amultiple site organization consisting of ambulatory clinics and hospital sitesin [place], [place], [place] and [place]. This disclosure is being madepursuant to the Care Everywhere program and may not contain all information available regarding this patient. Last updated 17.[facility] Allergies Active Allergy Reactions Criticality Noted Date Comments Penicillins Skin Reactions Medium 06/25/2012 Pneumococcal Polysaccharides Fever Medium 020 Sulfa Drugs Rash Medium 06/25/2012 Medications * Be aware that medications may not be up to date on this document. Alwaysverify current medications with the patient. Medication Sig Dispensed Refills Start Date End Date Status montelukast (SINGULAIR) 10 MG tabletIndications: Asthma 6 05/10/2016 Active semaglutide (OZEMPIC) 2 MG/1.5ML penIndications:Typ e 2 Diabetes Mellitus Inject 0.5 (one-half) mg subcutaneously every 7 days Reasons: Type 2 Diabetes 12 Pen 3 09/26/2018 Active clonazePAM (KLONOPIN) 1 MG tabletIndications: Anxiety Take 1 (one) tablet by mouth 3 times daily 1 tablet 7-8 am, 1 tablet 3-4 pm, 1/2 tablet bedtime Reasons: Feeling Anxious 60 tablet 09/17/2019 Active cetirizine (ZYRTEC) 10 MG tabletIndications: Seasonal Allergic Rhinitis Take 1 tablet by mouth once daily 90 tablet 3 11/24/2019 Active Trelegy Ellipta 100-62.5-25 MCG/ACTIndications :Asthma INHALE 1 PUFF BY MOUTH EVERY DAY 180 Each 3 05/16/2023 Active propranolol ER 24hr (Inderal LA) 60 MG capsuleIndications :Anxiety Take 1 (one) capsule by mouth once daily Reasons: Feeling Anxious Active albuterol HFA (Proventil; Ventolin; Proair) 108 (90 Base) MCG/ACT inhalerIndications :Asthma INHALE 2 PUFFS BY MOUTH EVERY 6 HOURS NEEDED 8.5 g 11 05/29/2023 Active tiZANidine (Zanaflex) 2 MG tabletIndications: Musculoskeletal Pain Take 1 (one) tablet by mouth 3 times daily as needed for Muscle Spasms Reasons: Musculoskeletal Pain Active pantoprazole EC (Protonix) 40 MG tabletIndications: Gastroesophageal Reflux Disease Take 1 (one) tablet by mouth once daily Reasons: Gastroesophageal Reflux Disease Active sertraline (Zoloft) 50 MG tabletIndications: Major Depressive Disorder Take 1 (one) tablet by mouth once daily Reasons: Major Depressive Disorder 30 tablet 1 12/19/2023 Active nicotine polacrilex (Nicorette) 2 MG gumIndications:Zaid otine Dependence Take 1 (one) Each by mouth as needed for Smoking Cessation - Gum should be slowly chewed until a peppery taste emerges, then parked between cheek and gum to facilitate nicotine absorption. - Avoid eating or drinking for 15 minutes before and during chewing gum. Reasons: Nicotine Addiction 40 Each 1 12/18/2023 Active dupilumab (Dupixent) 300 MG/2ML prefilled syringeIndications :Decompensated COPD with exacerbation (chronic obstructive pulmonary disease) (HCC) Inject 2 mL subcutaneously every 14 days (Maintenance dose) 6 mL 3 02/27/2024 Active Active Problems Problem Noted Date Diagnosed Date Bipolar 2 disorder, major depressive episode Bipolar I disorder with depression 11/12/2023 Bipolar I disorder with mixed features Borderline personality disorder 05/24/2023 Generalized anxiety disorder 05/24/2023 Cannabis use disorder, moderate, dependence 05/2023 Chronic bronchitis 11/02/2016 Mild intermittent asthma, uncomplicated 11/03/19 17 Tobacco use 11/02/2016 Allergic rhinitis 12/03/2014 Hypersomnia due to medical condition 12/03/2014 Fibromyalgia 07/17/2014 Periodic limb movement disorder 05/06/2013 Obstructive sleep apnea 06/25/2012 Encounters Date Type Department Care Team Description 02/27/2024 3:00 PM MOTOR AND GENERATOR ASSEMBLER Office Visit [facility] [address] [place] [address] Alexandr Hayes MD Chronic obstructive pulmonary disease, unspecified COPD type (HCC) (Primary Dx); Uncomplicated asthma, unspecified asthma severity, unspecified whether persistent (HCC); High hematocrit; Decompensated COPD with exacerbation (chronic obstructive pulmonary disease) (HCC) 02/27/2024 Travel from Last 3 Months Immunizations Name Administration Dates Next Due INFLUENZA VACCINE, TRIV. (AF LURIA, FLUZONE TRIVALENT; 6MO+) (IIV3) 12/14/2016,11/13/2015 Covid Moderna primary monova lent 12+ yr 0.5mL 06/08/2020,05/08/2020 INFLUENZA VACCINE 12/03/2020,11/21/2018,12/01/19 INFLUENZA VACCINE, TRIV. (FL UZONE; FLULAVAL; FLUARIX; AFLURIA TRIVALENT; 6MO+), 0.5 ML (IIV3) 11/13/2023 PNEUMOCOCCAL PPSV23 05/20/2016 Family History Medical History Relation Name Comments Anxiety Disorder Brother Darlene panic attac ks Bipolar Disorder Brother Adrlene Depression Brother Darlene Diabetes Brother Darlene prediabetes; St atus: Alive Hyperlipidemia Brother Darlene Asthma Father exercise-induce d bronchospasm Brain Tumor Father Diabetes Father High Cholesterol Father Hypertension Father Other Father NonHodgkin's ly mphoma Other - Pulmonary/Lung Father Early emphysema Alcohol abuse Mother memory loss; W ernicke's encephalopathy; Korsakoff Arthritis Mother Fibromyalgia Mother Other Mother localized cutan eous sclerosis; restless legs syndrome Relation Name Status Comments Brother Darlene Alive Father Alive Mother Alive Social History Tobacco Use Types Packs/Day Years Used Date Smoking Tobacco: Every Day Cigarettes 1 13 Started: 09/05/2005; Last attempted to quit: 09/05/2018 Smokeless Tobacco: Never Tobacco Cessation:Ready to Q uit: Not Asked; Counseling Given: Not Answered Comments:Vapes and has Intermittently smoked tobacco over the past 13 years ( 11/12/2003 ) Alcohol Use Standard Drinks/Week Comments Yes 3 (1 standard drink = 0.6 oz pure alcohol) 2 drinks a week when she drinks AUDIT-C Answer Date Recorded Q1: How often do you have a drink containing alc ohol? Monthly or less 12/13/2023 Q2: How many drinks containi ng alcohol do you have on a typical day when you are drinking? 1 or 2 12/13/2023 Q3: How often do you have si x or more drinks on one occasion? Never 12/13/2023 Overall Financial Resource Strain (CARDIA) Answe r Date Recorded How hard is it for you to pa y for the very basics like food, housing, medical care, and heating? Patient declined 12/13/2023 PHQ-2 Answer Date Recorded Patient Health Questionnaire-2 Score 3 05/09/2023 [facility] - Occupational Stress Questionnaire Answer Date Recorded Do you feel stress - tense, restless, nervous, or anxious, or unable to sleep at night because your mind is troubled all the time - these days? Patient declined 12/13/2023 Hunger Vital Sign Answer Date Recorded Within the past 12 months, y ou worried that your food would run out before you got the money to buy more. Patient declined Within the past 12 months, t he food you bought just didn't last and you didn't have money to get more. Patient declined PRAPARE - Transportation Answer Date Re corded In the past 12 months, has l ack of transportation kept you from medical appointments or from getting medications? Patient declined 12/13/2023 In the past 12 months, has l ack of transportation kept you from meetings, work, or from getting things needed for daily living? Patient declined 12/13/2023 Housing Stability Vital Sign Answer Chris e Recorded In the last 12 months, was t here a time when you were not able to pay the mortgage or rent on time? No 11/12/2023 In the last 12 months, how many places have you lived? 1 11/12/2023 In the last 12 months, was t here a time when you did not have a steady place to sleep or slept in a usp (including now)? No 11/12/2023 Housing Stability Vital Sign Answer Chris e Recorded In the last 12 months, was t here a time when you were not able to pay the mortgage or rent on time? Patient declined 12/13/19 24 In the past 12 months, how m any times have you moved where you were living? 1 12/13/2023 At any time in the past 12 m ont, were you homeless or living in a usp (including now)? Patient declined 12/13/2023 Sex and Gender Information Value Date Recorded Sex Assigned at Not on file Gender Identity Not on file Sexual Orientation Not on file Last Filed Vital Signs Vital Sign Reading Time Taken Comments Blood Pressure 116/84 02/27/2024 2:04 PM MOTOR AND GENERATOR ASSEMBLER Pulse 79 02/27/2024 2:04 PM MOTOR AND GENERATOR ASSEMBLER Temperature 36.6 C (97.9 F) 12/18/2023 7:43 AM CDT Respiratory Rate 16 12/18/2023 7:43 AM CDT Oxygen Saturation 99% 12/18/2023 7:43 AM CDT Inhaled Oxygen Concentration - - Weight 86.6 kg (191 lb) 02/27/2024 2:04 PM MOTOR AND GENERATOR ASSEMBLER Height 167.6 cm (5' 6 ) 02/27/2024 2:04 PM MOTOR AND GENERATOR ASSEMBLER Body Mass Index 30.83 02/27/2024 2:04 PM MOTOR AND GENERATOR ASSEMBLER Plan of Treatment Upcoming Encounters Date Type Department Care Team (Late st Contact Info) Description 08/27/2024 11:20 AM CDT Office Visit [facility] - [facility] Services [address] [place] [address] Alexandr Hayes MD [address] OF [facility] [address] Health Maintenance Due Date Last Done Comments COLOGUARD (AGES 45-75) - COLON CA SCREENING 1978 COLON MONITORING 1978 COLONOSCOPY - COLON CA SCREENING 1978 CT COLONOGRAPHY - COLON CA SCREENING 1978 Colorectal Cancer Screening 1978 FIT - COLON CA SCREENING 1978 FLEX SIG - COLON CA SCREENING 1978 MAMMOGRAM 1978 PAP SMEAR 1978 HIV SCREENING 1993 HEPATITIS C SCREENING 08/12/1996 DTAP/TDAP/TD VACCINES (1 - Tdap) 1997 HEPATITIS B VACCINE (1 of 3 - 19+ 3-dose series) 1997 COVID-19 VACCINE (6 - 2023- season) 2023 11/30/2021, 12/25/2020, 06/08/2020, Additional history exists SCREENING FOR DIABETES 12/16/2026 , 12/15/2023, 12/14/2023, Additional history exists ZOSTER VACCINE (1 of 2) 2028 LIPID TESTING 12/13/2028 12/14/2023, 11/13/2023 INFLUENZA VACCINE Completed 11/13/2023, , 12/24/2020, Additional history exists HIB VACCINE Aged Out No longer eligi ble based on patient's age to complete this topic HPV VACCINE Aged Out No longer eligi ble based on patient's age to complete this topic MENINGOCOCCAL (Group B) VACCINE SHARED DECISION-MAKING Aged Out No longer eligible based on patient's age to complete this topic MENINGOCOCCAL GROUPS A/C/Y/W VACCINE Aged Out No longer eligible based on patient's age to complete this topic Procedures Procedure Name Priority Date/Time Associated Diagnosis Comments LAB RESULTS ORDER 03/05/2024 CBC W AUTO DIFFERENTIAL Routine 03/04/2024 12:35 PM MOTOR AND GENERATOR ASSEMBLER GLUCOSE - POINT OF CARE Routine 12/17/2023 1:22 AM CDT LIPID PROFILE AM Draw 12/14/2023 7:07 AM CDT from Last 3 Months or Most Recently Relevant to Health Maintenance Results * LAB RESULTS ORDER (03/05/2024) 03/05/2024 Narrative 03/05/2024 Ordered by an unspecified provider. Scanned Document LAB - THERAPEUTIC DR PAGE MONITORING ORDERABLES * CBC WITH DIFFERENTIAL (03/04/2024 12:35 PM MOTOR AND GENERATOR ASSEMBLER) WBC 7.2 3.4 - 10.8 x10E3/uL [facility] INSURANCE BILL RBC 4.82 3.77 - 5.28 x10E6/uL [facility] INSURANCE BILL Hemoglobin 14.3 11.1 - 15.9 g/dL [facility] INSURANCE BILL Hematocrit 44.6 34.0 - 46.6 % [facility] INSURANCE BILL MCV 93 79 - 97 fL [facility] INSURANCE BILL MCH 29.7 26.6 - 33.0 pg [facility] INSURANCE BILL MCHC 32.1 31.5 - 35.7 g/dL [facility] INSURANCE BILL RDW 12.5 11.7 - 15.4 % [facility] INSURANCE BILL Platelet Count 195 150 - 450 x10E3/uL [facility] INSURANCE BILL Granulocytes % 69 Not Estab. % [facility] INSURANCE BILL Lymphocytes % 22 Not Estab. % [facility] INSURANCE BILL Monocytes % 5 Not Estab. % [facility] INSURANCE BILL Eosinophils % 3 Not Estab. % [facility] INSURANCE BILL Basophils % 1 Not Estab. % [facility] INSURANCE BILL Granulocytes Absolute 5.0 1.4 - 7.0 x10E3/uL [facility] INSURANCE BILL Lymphocytes Absolute 1.6 0.7 - 3.1 x10E3/uL [facility] INSURANCE BILL Monocytes Absolute 0.4 0.1 - 0.9 x10E3/uL [facility] INSURANCE BILL Eosinophils Absolute 0.2 0.0 - 0.4 x10E3/uL [facility] INSURANCE BILL Basophils Absolute 0.0 0.0 - 0.2 x10E3/uL [facility] INSURANCE BILL Immature Granulocytes 0 Not Estab. % [facility] INSURANCE BILL Immature Granulocytes Absolute 0.0 0.0 - 0.1 x10E3/uL [facility] INSURANCE BILL 03/04/2024 12:3 5 PM MOTOR AND GENERATOR ASSEMBLER 03/04/2024 Narrative [facility] INSURANCE BILL - 03/05/2024 10:36 AM MOTOR AND GENERATOR ASSEMBLER Performed at: [address] [id number] Weed Control Inspector: Kar Araiza PhD, Phone: [phone] Specimen Comment: A courtesy copy of this report has been sent to [phone] Alexandr Hayes MD LAB - HEMATOLOGY OR DERABLES [facility] INSURANCE BILL [address] [place] [address] * (ABNORMAL) GLUCOSE - POINT OF CARE (12/17/2023 1:22 AM CDT) Glucose WB/POC 107(H) 70 - 99 mg/dL 12/17/2023 1:28 AM CDT [facility] Specimen Type Cap Fingerstick 2023 1:28 AM CDT [facility] Blood BLOOD SPECIMEN / Unknown 12/17/2023 1:22 AM CDT 12/17/2023 1:28 AM CDT Samy Raygoza MD LAB - POINT OF CARE ORDERABLES [facility] [address] [place] [address] * (ABNORMAL) LIPID PROFILE (12/14/2023 7:07 AM CDT) Cholesterol 180 <200 mg/dL 12/14/2023 10:29 AM T [facility] Triglycerides 316(H) <150 mg/dL 12/14/2023 10:29 AM T [facility] HDL Cholesterol 25(L) >40 mg/dL 10:[address] [facility] LDL Calculated 92 <130 mg/dL 12/14/2023 10:[address] [facility] VLDL Calculated 63(H) <=30 mg/dL 10:29 AM T [facility] Chol HDL Ratio 7.2(H) <4.5 12/14/2023 10:29 AM T [facility] LDL/HDL Ratio 3.7 <5.0 12/14/2023 10:29 AM T [facility] Blood BLOOD SPECIMEN / Unknown Venipuncture / Unknown 12/14/2023 7:07 AM CDT 12/14/2023 7:27 AM CDT Jerad Cox APRN-BULLDOGGER LAB - CHEMISTRY ORDERABLES [facility] [address] [place] [address] from Last 3 Months or Most Recently Relevant to Health Maintenance Advance Directives * Full Code (Latest Code Status on File) Date Activated Date Inactivated Comments 12/13/2023 3:32 PM 12/18/2023 2:15 PM * Full Code Date Activated Date Inactivated Comments 11/12/2023 9:16 PM 11/20/2023 2:46 PM Care Teams Applications Chemist Relationship Specialty Start Date End Date Austin Longoria MD PCP - General 10/05/16
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
--- OUTSIDE RECORDS SUMMARY | 2024-04-30 14:50 | XMS_ITS | Patient Health Record ---
Author Organization [facility] [employer] [facility] Address [address] [facility] [address] [facility] [address] [place] [address] Care Team Providers Care Yarn Hauler Name Role Phone wSati JIMENEZ, Austin Primary Care Provider Unavailab Anjel Robles Unavailable [phone] Migration, Provider Unavailable Unavailable Allergies Allergen (clinical drug ingredient) Drug/Non Drug Allergy documented on EMR Reaction Allergy Type Onset Date Status Penicillin Unknown Drug Allergy Active Substance with sulfonamide structure and antibacterial mechanism of action (substance) Sulfa Antibiotics Unknown Drug Allergy Active Reason For Referral No Information Social History Sex Assigned At : Social History Observation Description Sex Assigned At Female Encounters Encounter Location Date Provider Diagnosis [facility] [address] [address] 07/07/2023 Provider Migration [address] [address] 07/08/2023 Provider Migration Plan Of Treatment Next Appt Details Provider Name:Anjel Espinoza , 05/09/2024 04:15:00 PM, [address] [place] [address] [address], [address], [address], Insurance Providers Payer Name Payer Address Payer Phone Subscriber Number Group Number Insured Name Patient Relationship to Insured Coverage Start Date Coverage End Date [employer] [address] [place] [phone] [id number] AARON Self - patient is the insured
--- OUTSIDE RECORDS SUMMARY | 2024-04-30 14:50 | XMS_ITS | Encounter Summary ---
Author Organization [facility] Address [address] [place] [address] Care Team Providers Care Smooth Stucco Resurfacer Name Role Phone Austin Longoria MD Primary Care Provider [phone] Reason for Visit * Reason Onset Date Comments MEDICATION REFILL 05/01/2020 Encounter Details Date Type Department Care Team (Late Contact Info) Description 05/01/2020 Refill [facility] [address] [place] [address] Alexandr Hayes MD [address] OF PULMONARY/[place] [address] MEDICATION REFILL Social History Tobacco Use Types Packs/Day Years Used Date Smoking Tobacco: Former Cigarettes 1 13 0 09/05/2005 - 09/05/2018 Smokeless Tobacco: Never Comments:switch to vaping Alcohol Use Standard Drinks/Week Comments Yes 3 (1 standard drink = 0.6 oz pure alcohol) 2 drinks a week when she drinks AUDIT-C Answer Date Recorded Q1: How often do you have a drink containing alc ohol? 2-4 times a month 11/24/2019 Average Number of Drinks Not on file 020 Frequency of Binge Drinking Not on file 06/2019 Sex and Gender Information Value Date Recorded Sex Assigned at Not on file Gender Identity Not on file Sexual Orientation Not on file documented as of this encounter Plan of Treatment Upcoming Encounters Date Type Department Care Team (Late st Contact Info) Description 08/27/2024 11:20 AM CDT Office Visit [facility] [address] [place] [address] Alexandr Hayes MD [address] OF PULMONARY/[place] [address] documented as of this encounter Visit Diagnoses Diagnosis Chronic obstructive pulmonary disease, unspecified COPD type (HCC) documented in this encounter Care Teams Smooth Stucco Resurfacer Relationship Specialty Start Date End Date Austin Longoria MD PCP - General 10/05/16 documented as of this encounter
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
--- OUTSIDE RECORDS SUMMARY | 2024-04-30 14:50 | XMS_ITS ---
Author Organization [facility] Address [address] [place] [address] Care Team Providers Care Assembler Installer Structures Name Role Phone Austin Longoria MD Primary Care Provider Unavailab Anjel Robles Unavailable [phone] Migration, Provider Unavailable Unavailable REASON [place]ISIT [facility] [place] Sex Assigned At : Social History Observation Description Sex Assigned At Female Encounters Encounter Location Date Provider Diagnosis [facility] [place] [id number] [place] [address] 07/08/2023 Provider Migration Plan Of Treatment Next Appt Details Provider Name:Anjel Espinoza , 05/09/2024 04:15:00 PM, [address], [facility] [address], [place], [address], Progress Notes * AGNIESZKA ZIGGYDOB:1980 (43 yo F)Acc No.[id number]:07/08/2023 Patient: ZIGGY JACOB :1980 A ge:42 Y S ex:Female Address:[place] Subjective: * Chief Complaints: * E MR-Ike * Medical History: * Surgical History: * Hospitalization/Major Diagno stic Procedure: * Medications: Objective: * Vitals: * Physical Examination: Assessment: Plan: * Treatment: * Procedure Codes: * true * Date: Generated for Printi ng/Faxing/eTransmitting on: 0 04/30/2024 02:50 PM CDT
--- OUTSIDE RECORDS SUMMARY | 2024-04-30 14:50 | XMS_ITS | Referral Summary ---
Author Organization [facility] Address [address] [place] [address] Care Team Providers Care Cable Driller Name Role Phone Austin Longoria MD Primary Care Provider [phone] Source Comments [facility],non-owned Affiliates and Associated Physician Practices is amultiple site organization consisting of ambulatory clinics and hospital sitesin [place], [place], [place] and [place]. This disclosure is being madepursuant to the Care Everywhere program and may not contain all information available regarding this patient. Last updated 17.[facility] Encounters Date Type Department Care Team Description 02/27/2024 Travel 02/27/2024 3:00 PM BUCK PRESSER Office Visit [facility] [address] [place] [address] Alexandr Hayes MD Chronic obstructive pulmonary disease, unspecified COPD type (HCC) (Primary Dx); Uncomplicated asthma, unspecified asthma severity, unspecified whether persistent (HCC); High hematocrit; Decompensated COPD with exacerbation (chronic obstructive pulmonary disease) (HCC) from Last 3 Months Allergies Active Allergy Reactions Criticality Noted Date [...] disorder 05/24/2023 Cannabis use disorder, moderate, dependence 04/0 05/2023 Chronic bronchitis 11/02/2016 Mild intermittent asthma, uncomplicated 11/03/19 17 Tobacco use 11/02/2016 Allergic rhinitis 12/03/2014 Hypersomnia due to medical condition 12/03/2014 Fibromyalgia 07/17/2014 Periodic limb movement disorder 05/06/2013 Obstructive sleep apnea 06/25/2012 Immunizations Name Administration Dates Next Due INFLUENZA VACCINE, TRIV. (AF LURIA, FLUZONE TRIVALENT; 6MO+) (IIV3) 12/14/2016,11/13/2015 Covid Moderna primary monova lent 12+ yr 0.5mL 06/08/2020,05/08/2020 INFLUENZA VACCINE 12/03/2020,11/21/2018,12/01/19 INFLUENZA VACCINE, TRIV. (FL UZONE; FLULAVAL; FLUARIX; AFLURIA TRIVALENT; 6MO+), 0.5 ML (IIV3) 11/13/2023 PNEUMOCOCCAL PPSV23 05/20/2016 Social History Tobacco Use Types Packs/Day Years [...] Recorded Patient Health Questionnaire-2 Score 3 05/09/2023 [facility] - Occup[facility] Stress [...] place to sleep or slept in a retirement (including now)? No 11/12/2023 Housing Stability Vital Sign Answer Chris e Recorded In the last 12 months, was t here a time when you were not able to pay the mortgage or rent on time? Patient declined 12/13/19 In the past 12 months, how m any times have you moved where you were living? 1 12/13/2023 At any time in the past 12 m [facility], were you homeless or living in a retirement (including now)? Patient declined 12/13/2023 Sex and Gender Information Value Date Recorded Sex Assigned at Not on file Gender Identity Not on file Sexual Orientation Not on file Last Filed Vital Signs Vital Sign Reading Time Taken Comments Blood Pressure 116/84 02/27/2024 2:04 PM BUCK PRESSER Pulse 79 02/27/2024 2:04 PM BUCK PRESSER Temperature 36.6 C (97.9 F) 12/18/2023 7:43 AM CDT Respiratory Rate 16 12/18/2023 7:43 AM CDT Oxygen Saturation 99% 12/18/2023 7:43 AM CDT Inhaled Oxygen Concentration - - Weight 86.6 kg (191 lb) 02/27/2024 2:04 PM BUCK PRESSER Height 167.6 cm (5' 6 ) 02/27/2024 2:04 PM BUCK PRESSER Body Mass Index 30.83 02/27/2024 2:04 PM BUCK PRESSER Functional Status Functional Status Response Date of Assess ment Is person deaf or have serious hearing difficult y? No 12/18/2023 Is person blind or have serious difficulty seein g? No 12/18/2023 Does person have serious dif ficulty walking/climbing stairs? No 12/18/2023 Does person have difficulty dressing/bathing? No 12/18/2023 Does person have difficulty doing errands alone? No 12/18/2023 Cognitive Status Response Date of Assessm ent Does person have difficulty concentrating/remembering/making decisions? No 12/18/2023 Plan of Treatment Upcoming Encounters Date Type Department Care Team (Late st Contact Info) Description 08/27/2024 11:20 AM CDT Office Visit [facility] [address] [place] [address] Alexandr Hayes MD [address] OF PULMONARY/[place] [address] Procedures Procedure Name Priority Date/Time Associated Diagnosis Comments LAB RESULTS ORDER 03/05/2024 CBC W AUTO DIFFERENTIAL Routine 03/04/2024 12:35 PM BUCK PRESSER GLUCOSE - POINT OF CARE Routine 12/17/2023 1:22 AM CDT LIPID PROFILE AM Draw 12/14/2023 7:07 AM CDT from Last 3 Months or Most Recently Relevant to Health Maintenance Results * LAB RESULTS ORDER (03/05/2024) 03/05/2024 Narrative 03/05/2024 Ordered by an unspecified provider. Scanned Document LAB - THERAPEUTIC DR UG MONITORING ORDERABLES * CBC WITH DIFFERENTIAL (03/04/2024 12:35 PM BUCK PRESSER) WBC 7.2 3.4 - 10.8 x10E3/uL [facility] [...] [facility] INSURANCE BILL 03/04/2024 12:3 5 PM BUCK PRESSER 03/04/2024 Narrative [facility] INSURANCE BILL - 03/05/2024 10:36 AM BUCK PRESSER Performed at: 01 - [facility] [address] [place], [place] [id number] Slab Inspector: Kar Araiza PhD, Phone: [phone] Specimen Comment: A courtesy copy of this report has been sent to [phone] Alexandr Hayes MD LAB - HEMATOLOGY OR DERABLES [facility] INSURANCE BILL [address] [place] [address] * (ABNORMAL) GLUCOSE - POINT OF CARE (12/17/2023 1:22 AM CDT) Pathologist [facility] Glucose WB/POC 107(H) 70 - 99 mg/dL 12/17/2023 1:28 AM CDT [facility] Specimen Type Cap Fingerstick 2023 1:28 AM CDT [facility] Blood BLOOD SPECIMEN / Unknown 12/17/2023 1:22 AM CDT 12/17/2023 1:28 AM CDT Samy Raygoza MD LAB - POINT OF CARE ORDERABLES [facility] [address] [place] [address] * (ABNORMAL) LIPID PROFILE (12/14/2023 7:07 AM CDT) Pathologist [facility] Cholesterol 180 <200 mg/dL 12/14/2023 10:29 AM CDT [facility] Triglycerides 316(H) <150 mg/dL 12/14/2023 10:29 AM CDT [facility] HDL Cholesterol 25(L) >40 mg/dL 10:29 AM CDT [facility] LDL Calculated 92 <130 mg/dL 12/14/2023 10:29 AM CDT [facility] VLDL Calculated 63(H) <=30 mg/dL 10:29 AM CDT [facility] Chol HDL Ratio 7.2(H) <4.5 12/14/2023 10:29 AM CDT [facility] LDL/HDL Ratio 3.7 <5.0 12/14/2023 10:29 AM CDT [facility] Blood BLOOD SPECIMEN / Unknown Venipuncture / Unknown 12/14/2023 7:07 AM CDT 12/14/2023 7:27 AM CDT Jerad Cox SEASONING SPRAYER-TRAUMA DOCTOR LAB - CHEMISTRY ORDERABLES [facility] [address] [place] [address] from Last 3 Months or Most Recently Relevant to Health Maintenance Advance Directives * Full Code (Latest Code Status on File) Date Activated Date Inactivated Comments 12/13/2023 3:32 PM 12/18/2023 2:15 PM * Full Code Date Activated Date Inactivated Comments 11/12/2023 9:16 PM 11/20/2023 2:46 PM Care Teams Cable Driller Relationship Specialty Start Date End Date Austin Longoria MD PCP - General 10/05/16
--- OUTSIDE RECORDS SUMMARY | 2024-04-30 14:50 | XMS_ITS | Patient Health Summary ---
Author Organization [facility] Address [address] [place] [address] Care Team Providers Care Cuff Setter Overlock Name Role Phone Austin Longoria MD Primary Care Provider [phone] [facility],non-owned Affiliates and Associated Physician Practices is amultiple site organization consisting of ambulatory clinics and hospital sitesin [place], [place], [place] and [place]. This disclosure is being madepursuant to the Care Everywhere program and may not contain all information available regarding this patient. Last updated 17.[facility] Allergies * Penicillins(Skin Reactions) -Medium Criticality * Pneumococcal Polysaccharides(Fever) -Medium Criticality * Sulfa Drugs(Rash) -Medium Criticality * Saxagliptin(Nausea and/or Vomiting),Inactive Medications * Be aware that medications may not be up to date on this document. Alwaysverify current medications with the patient. * montelukast (SINGULAIR) 10 MG tablet(Started 05/10/2016) 6 refills left * semaglutide (OZEMPIC) 2 MG/1.5ML pen(Started 09/26/2018) Inject 0.5 (one-half) mg subcutaneously every 7 days Reasons: Type 2 Diabetes 3 refills remaining * clonazePAM (KLONOPIN) 1 MG tablet(Started 09/17/2019) Take 1 (one) tablet by mouth 3 times daily 1 tablet 7-8 am, 1 tablet 3-4 pm, 1/2 tablet bedtime Reasons: Feeling Anxious * cetirizine (ZYRTEC) 10 MG tablet(Started 11/24/2019) Take 1 tablet by mouth once daily 3 refills by 11/23/2020 * Trelegy Ellipta 100-62.5-25 MCG/ACT(Started 05/16/2023) INHALE 1 PUFF BY MOUTH EVERY DAY 3 refills by 05/15/2024 * propranolol ER 24hr (Inderal LA) 60 MG capsule Take 1 (one) capsule by mouth once daily Reasons: Feeling Anxious * albuterol HFA (Proventil; Ventolin; Proair) 108 (90 Base) MCG/ACT inhaler (Started 05/29/2023) INHALE 2 PUFFS BY MOUTH EVERY 6 HOURS NEEDED 11 refills by 05/28/2024 * tiZANidine (Zanaflex) 2 MG tablet Take 1 (one) tablet by mouth 3 times daily as needed for Muscle Spasms Reasons: Musculoskeletal Pain * pantoprazole EC (Protonix) 40 MG tablet Take 1 (one) tablet by mouth once daily Reasons: Gastroesophageal Reflux Disease * sertraline (Zoloft) 50 MG tablet(Started 12/19/2023) Take 1 (one) tablet by mouth once daily Reasons: Major Depressive Disorder 1 refill by 12/17/2024 * nicotine polacrilex (Nicorette) 2 MG gum(Started 12/18/2023) Take 1 (one) Each by mouth as needed for Smoking Cessation - Gum should be slowly chewed until a peppery taste emerges, then parked between cheek and gum to facilitate nicotine absorption. - Avoid eating or drinking for 15 minutes before and during chewing gum. Reasons: Nicotine Addiction 1 refill by 12/17/2024 * dupilumab (Dupixent) 300 MG/2ML prefilled syringe(Started 02/27/2024) Inject 2 mL subcutaneously every 14 days (Maintenance dose) 3 refills by 02/26/2025 Active Problems Problem Noted Date Diagnosed Date [...] disorder 05/06/2013 Obstructive sleep apnea 06/25/2012 Immunizations * INFLUENZA VACCINE, TRIV. (AFLURIA, FLUZONE TRIVALENT; 6MO+) (IIV3)(Given 12/14/2016, 11/13/2015) * Covid Moderna primary monovalent 12+ yr 0.5mL(Given 06/08/2020, 05/08/2020) * INFLUENZA VACCINE(Given 12/03/2020, 11/21/2018, 11/30/2017) * INFLUENZA VACCINE, TRIV. (FLUZONE; FLULAVAL; FLUARIX; AFLURIA TRIVALENT; 6MO+), 0.5 ML (IIV3)(Given 11/13/2023) * PNEUMOCOCCAL PPSV23(Given 05/20/2016) Social History Tobacco Use Types Packs/Day Years [...] Recorded Patient Health Questionnaire-2 Score 3 05/09/2023 [facility] [place] [facility] Occupat ional [facility] - Occupational Stress [...] place to sleep or slept in a longterm (including now)? No 11/12/2023 Housing Stability Vital [...] any time in the past 12 m [facility], were you homeless or living in a longterm (including now)? Patient declined 12/13/2023 Sex and Gender Information Value Date Recorded Sex Assigned at Not on file Gender Identity Not on file Sexual Orientation Not on file Last Filed Vital Signs Vital Sign Reading Time Taken Comments Blood Pressure 116/84 02/27/2024 2:04 PM DIGITAL CONTENT PRODUCER Pulse 79 02/27/2024 2:04 PM DIGITAL CONTENT PRODUCER Temperature 36.6 C (97.9 F) 12/18/2023 7:43 AM CDT Respiratory Rate 16 12/18/2023 7:43 AM CDT Oxygen Saturation 99% 12/18/2023 7:43 AM CDT Inhaled Oxygen Concentration - - Weight 86.6 kg (191 lb) 02/27/2024 2:04 PM DIGITAL CONTENT PRODUCER Height 167.6 cm (5' 6 ) 02/27/2024 2:04 PM DIGITAL CONTENT PRODUCER Body Mass Index 30.83 02/27/2024 2:04 PM DIGITAL CONTENT PRODUCER Procedures * LAB RESULTS ORDER(Performed 03/05/2024) * CBC W AUTO DIFFERENTIAL(Performed 03/04/2024) * URINALYSIS REFLEX TO MICROSCOPIC NO CULTURE(Performed 12/17/2023) * GLUCOSE - POINT OF CARE(Performed 12/17/2023) * BASIC METABOLIC PANEL (CALCIUM TOTAL)(Performed 12/15/2023) * TSH REFLEX FREE T4(Performed 12/14/2023) * LIPID PROFILE(Performed 12/14/2023) * HEMOGLOBIN A1C(Performed 12/14/2023) * COMPREHENSIVE METABOLIC PANEL(Performed 12/14/2023) * CBC W AUTO DIFFERENTIAL(Performed 12/14/2023) * DRUG SCREEN URINE(Performed 12/12/2023) * HCG URINE QUALITATIVE - POCT (IP) INTERFACED(Performed 12/12/2023) * GLUCOSE - POINT OF CARE(Performed 11/14/2023) * URINE DRUG SCREEN IMMUNOASSAY(Performed 11/13/2023) * URINALYSIS REFLEX TO MICROSCOPIC NO CULTURE(Performed 11/13/2023) * LITHIUM LEVEL(Performed 11/13/2023) * SYPHILIS ANTIBODY CASCADING REFLEX(Performed 11/13/2023) * TSH REFLEX FREE T4(Performed 11/13/2023) * LIPID PROFILE(Performed 11/13/2023) * HEMOGLOBIN A1C(Performed 11/13/2023) * COMPREHENSIVE METABOLIC PANEL(Performed 11/13/2023) * CBC W AUTO DIFFERENTIAL(Performed 11/13/2023) * HCG BLOOD QUALITATIVE(Performed 11/13/2023) * GLUCOSE - POINT OF CARE(Performed 11/12/2023) * FRACTIONAL EXHALED NITRIC OXIDE(Performed 12/06/2021) Performed for Uncomplicated asthma, unspecified asthma severity, unspecified whether persistent (HCC) * COMPLETE PFT W/WO BRONCHODILATOR(Performed 12/06/2021) Performed for Uncomplicated asthma, unspecified asthma severity, unspecified whether persistent (HCC) * COMPLETE PFT W/WO BRONCHODILATOR(Performed 09/07/2018) Performed for Chronic bronchitis, unspecified chronic bronchitis type (HCC), Uncomplicated asthma, unspecified asthma severity, unspecified whether persistent (HCC) * INTERPRETATION (7)(Performed 11/27/2016) * MPUXP-6-HELUMVFMSFI BLOOD(Performed 11/27/2016) * ALLERGEN RESPIRATORY PNL REGION 8 ([place])(Performed 11/27/2016) * COMPLETE PFT W/WO BRONCHODILATOR(Performed 10/05/2016) * LAB HISTORICAL RESULTS-ONBASE(Performed 08/16/2013) * COMPREHENSIVE METABOLIC PANEL(Performed 06/25/2012) * C-REACTIVE PROTEIN(Performed 06/25/2012) * ALDOLASE(Performed 06/25/2012) * CK BLOOD(Performed 06/25/2012) * ERYTHROCYTE SEDIMENTATION RATE(Performed 06/25/2012) * VITAMIN D 25-HYDROXY(Performed 06/25/2012) * COMPREHENSIVE METABOLIC PANEL(Performed 06/25/2012) * CBC W AUTO DIFFERENTIAL(Performed 06/25/2012) * COMPREHENSIVE METABOLIC PANEL(Performed 06/25/2012) * C-REACTIVE PROTEIN(Performed 06/25/2012) * CK BLOOD(Performed 06/25/2012) * ERYTHROCYTE SEDIMENTATION RATE(Performed 06/25/2012) * VITAMIN D 25-HYDROXY(Performed 06/25/2012) * COMPREHENSIVE METABOLIC PANEL(Performed 06/25/2012) * CBC W AUTO DIFFERENTIAL(Performed 06/25/2012) * LAB HISTORICAL RESULTS-ONBASE(Performed 06/22/2009) Results * LAB RESULTS ORDER (03/05/2024) 03/05/2024 Narrative 03/05/2024 Ordered by an unspecified provider. Scanned Document LAB - THERAPEUTIC DR PAGE MONITORING ORDERABLES * CBC WITH DIFFERENTIAL (03/04/2024 12:35 PM DIGITAL CONTENT PRODUCER) Only the most recent of5 resultswithin the time period is included. WBC 7.2 3.4 - 10.8 x10E3/uL [facility] [...] [facility] INSURANCE BILL 03/04/2024 12:3 5 PM DIGITAL CONTENT PRODUCER 03/04/2024 Narrative [facility] INSURANCE BILL - 03/05/2024 10:36 AM DIGITAL CONTENT PRODUCER Performed at: [address] [id number] Adolescent Specialist: Kar Araiza PhD, Phone: [phone] Specimen Comment: A courtesy copy of this report has been sent to [phone] Alexandr Hayes MD LAB - HEMATOLOGY OR DERABLES [facility] INSURANCE BILL [address] [place] [address] * URINALYSIS REFLEX TO MICROSCOPIC NO CULTURE (12/17/2023 2:56 PM CDT) Only the most recent of2 resultswithin the time period is included. Pathologist [facility] Color UA Straw Straw, Yellow 12/17/2023 5:39 PM CDT [facility] Clarity UA Clear Clear 12/17/2023 5:39 PM CDT [facility] Glucose UA Negative Negative 12/17/2023 5:39 PM CDT [facility] Bilirubin UA Negative Negative 12/17/2023 5:39 PM CDT [facility] Ketone UA Negative Negative 12/17/2023 5:39 PM CDT [facility] Specific [place] UA 1.005 1.005 - 1.030 12/17/2023 5:39 PM CDT [facility] Blood UA Negative Negative 12/17/2023 5:39 PM CDT [facility] pH UA 5.0 5.0 - 8.0 pH 12/17/2023 5:39 PM CDT [facility] Protein UA Negative Negative 12/17/2023 5:39 PM CDT [facility] Urobilinogen UA Negative Negative mg/dL 12/17/2023 5:39 PM CDT [facility] Nitrite UA Negative Negative 12/17/2023 5:39 PM CDT [facility] Leukocyte UA Negative Negative 12/17/2023 5:39 PM CDT [facility] Urine Microscopy Urine microscopy not indicated 12/17/2023 5:39 PM CDT [facility] Urine URINE SPECIMEN OBTAINED BY CLEAN CATCH PROCEDURE / Unknown Collection / Unknown 12/17/2023 2:56 PM CDT 12/17/2023 5:34 PM CDT Narrative [facility] - 12/17/2023 5:39 PM CDT Gato Hills MD LAB - URINALYSIS ORD ERABLES [facility] [address] [place] [address] * (ABNORMAL) GLUCOSE - POINT OF CARE (12/17/2023 1:22 AM CDT) Only the most recent of3 resultswithin the time period is included. [facility] Glucose WB/POC 107(H) 70 - 99 mg/dL 12/17/2023 1:28 AM CDT [facility] Specimen Type Cap Fingerstick 2023 1:28 AM CDT [facility] Blood BLOOD SPECIMEN / Unknown 12/17/2023 1:22 AM CDT 12/17/2023 1:28 AM CDT Samy Raygoza MD LAB - POINT OF CARE ORDERABLES [facility] [address] [phone] * (ABNORMAL) BASIC METABOLIC PANEL (CALCIUM TOTAL) (12/15/2023 7:22 AM CDT) [facility] Glucose 94 70 - 99 mg/dL 12/15/2023 10:39 AM CDT [facility] Sodium 143 136 - 145 mmol/L 12/15/2023 10:39 AM CDT [facility] Potassium 4.1 3.5 - 5.1 mmol/L 12/15/2023 10:39 AM CDT [facility] Chloride 106 98 - 107 mmol/L 12/15/2023 10:39 AM CDT [facility] CO2 26 22 - 29 mmol/L 12/15/2023 10:39 AM [facility] Calcium 10.1 8.4 - 10.4 mg/dL 12/15/2023 10:39 AM [facility] Anion Gap 11 6 - 16 mmol/L 12/15/2023 10:39 AM CDT [facility] BUN 18 5.3 - 18.7 mg/dL 12/15/2023 10:39 AM CDT [facility] Creatinine 0.88 0.57 - 1.11 mg/dL 12/15/2023 10:39 AM [facility] eGFR by CKD-EPI 83(L) >=90 mL/min/1.7 3 m2 12/15/2023 10:39 AM T [facility] Blood BLOOD SPECIMEN / Unknown Venipuncture / Unknown 12/15/2023 7:22 AM CDT 12/15/2023 8:46 AM CDT [place] MD LAB - CHEMISTRY ORDJennifer GLEZ [facility] [address] [place] [address] * TSH REFLEX FREE T4 (12/14/2023 7:07 AM CDT) Only the most recent of2 resultswithin the time period is included. TSH 0.574 0.350 - 4.940 uIU/mL 12/14/2023 10:51 AM CDT [facility] Blood BLOOD SPECIMEN / Unknown Venipuncture / Unknown 12/14/2023 7:07 AM CDT 12/14/2023 7:27 AM CDT Jerad Cox SUPERVISOR FISH BAIT PROCESSING-MANAGER PATHOLOGY LAB - CHEMISTRY ORDERABLES [facility] [address] [place] [address] * HEMOGLOBIN A1C (12/14/2023 7:07 AM CDT) Only the most recent of2 resultswithin the time period is included. Hemoglobin A1c 5.2 <5.7 % 12/14/2023 10:47 AM CDT [facility] Estimated Average Glucose 103 mg/dL 12/14/2023 10:47 AM CDT [facility] Blood BLOOD SPECIMEN / Unknown Venipuncture / Unknown 12/14/2023 7:07 AM CDT 12/14/2023 7:23 AM CDT Narrative [facility] - 12/14/2023 10:47 AM CDT HbA1c Interpretation: Normal: < 5.7% Pre-diabetes: 5.7-6.4% Diabetes: Equal to or greater than 6.5% Test results diagnostic of diabetes should be repeated for confirmation. Treatment target values recommended by ADA and other clinical organizations should be used to evaluate metabolic control in patients. This test should not replace glucose testing for patients with Type 1 diabetes, pediatric patients, or women. Falsely low HbA1c results may be observed in patients with clinical conditions that shorten erythrocyte life span or decrease mean erythrocyte age such as the presence of unstable hemoglobin variants, elevated hemoglobin F level or other causes of hemolytic anemia. HbA1c may not accurately reflect glycemic control when clinical conditions that affect erythrocyte survival are present. Severe Iron deficiency anemia may yield falsely high results. Hemoglobin A1c assay should not be used to diagnose or monitor diabetes in patients with malignancy, recent blood transfusion, chronic kidney or liver disease. This method may yield falsely low results when hemoglobin (HbF) exceeds 5% in the specimen. The Schmid Alinity assay for the measurement of HbA1c is a National Glycohemoglobin Standardization Program (NGSP) certified method. Jerad Cox SUPERVISOR FISH BAIT PROCESSING-MANAGER PATHOLOGY LAB - CHEMISTRY ORDERABLES [facility] [address] [place] [address] * (ABNORMAL) COMPREHENSIVE METABOLIC PANEL (12/14/2023 7:07 AM CDT) Only the most recent of6 resultswithin the time period is included. Glucose 106(H) 70 - 99 mg/dL 12/14/2023 10:31 AM [facility] Sodium 140 136 - 145 mmol/L 12/14/2023 10:31 AM CDT [facility] Potassium 5.3(H) 3.5 - 5.1 mmol/L 12/14/2023 10:31 AM [facility] Chloride 107 98 - 107 mmol/L 12/14/2023 10:31 AM [facility] CO2 24 22 - 29 mmol/L 12/14/2023 10:31 AM [facility] Calcium 10.3 8.4 - 10.4 mg/dL 12/14/2023 10:31 AM [facility] Anion Gap 9 6 - 16 mmol/L 12/14/2023 10:31 AM [facility] BUN 14 5.3 - 18.7 mg/dL 12/14/2023 10:31 AM [facility] Creatinine 0.91 0.57 - 1.11 mg/dL 12/14/2023 10:31 AM [facility] Alkaline Phosphatase 55 40 - 150 U/L 12/14/2023 10:31 AM [facility] ALT 14 0 - 55 U/L 12/14/2023 10:31 AM [facility] AST 15 5 - 34 U/L 12/14/2023 10:31 AM [facility] Protein Total 7.3 6.4 - 8.3 gm/dL 12/14/2023 10:31 AM [facility] Albumin 4.4 3.4 - 5.0 gm/dL 12/14/2023 10:31 AM CDT [facility] Bilirubin Total 0.4 0.2 - 1.2 mg/dL 12/14/2023 10:31 AM T [facility] eGFR by CKD-EPI 79(L) >=90 mL/min/1.7 3 m2 12/14/2023 10:31 AM CDT [facility] Blood BLOOD SPECIMEN / Unknown Venipuncture / Unknown 12/14/2023 7:07 AM CDT 12/14/2023 7:26 AM CDT Jerad Cox SUPERVISOR [facility] - CHEMISTRY ORDERABLES Performing Organization Address City/[facility]/ZIP Co de Phone Number [facility] [address] [place] [address] * (ABNORMAL) LIPID PROFILE (12/14/2023 7:07 AM CDT) Only the most recent of2 resultswithin the time period is included. [facility] Signature Cholesterol 180 <200 mg/dL 12/14/2023 10:29 AM CDT [facility] Triglycerides 316(H) <150 mg/dL 12/14/2023 10:29 AM [facility] HDL Cholesterol 25(L) >40 mg/dL 10:29 AM [facility] LDL Calculated 92 <130 mg/dL 12/14/2023 10:29 AM [facility] VLDL Calculated 63(H) <=30 mg/dL 10:29 AM [facility] Chol HDL Ratio 7.2(H) <4.5 12/14/2023 10:29 AM T [facility] LDL/HDL Ratio 3.7 <5.0 12/14/2023 10:29 AM T [facility] Blood BLOOD SPECIMEN / Unknown Venipuncture / Unknown 12/14/2023 7:07 AM CDT 12/14/2023 7:27 AM CDT Jerad Cox SUPERVISOR [facility] - CHEMISTRY ORDERABLES [facility] [address] [place] [address] * (ABNORMAL) DRUG SCREEN URINE (12/12/2023 4:38 PM CDT) [facility] Cannabinoids Screen Urine Detected(A) Not detected 12/12/2023 5:39 PM CDT [facility] Phencyclidine Screen Urine Not detected Not detected 12/12/2023 5:39 PM CDT [facility] Cocaine Screen Urine Not detected Not detected 12/12/2023 5:39 PM CDT [facility] Methamphetamine Screen Urine Not detected Not detected 12/12/2023 5:39 PM CDT [facility] Opiate Screen Urine Not detected Not detected 12/12/2023 5:39 PM CDT [facility] Amphetamines Screen Urine Not detected Not detected 12/12/2023 5:39 PM CDT [facility] Benzodiazepines Screen Urine Not detected Not detected 12/12/2023 5:39 PM CDT [facility] Tricyclics Screen Urine Not Detected Not Detected 12/12/2023 5:39 PM CDT [facility] Methadone Screen Urine Not detected Not detected 12/12/2023 5:39 PM CDT [facility] Barbiturates Screen Urine Not detected Not detected 12/12/2023 5:39 PM CDT [facility] Oxycodone Screen Urine Not detected Not detected 12/12/2023 5:39 PM CDT [facility] Urine URINE / Unknown Collection / Unknown 12/12/2023 4:38 PM CDT 12/12/2023 5:14 PM CDT [facility] - 12/12/2023 5:39 PM CDT This drug screen is designed for MEDICAL purposes only. It is not to be used for legal purposes, including but not limited to worker's compensation, police investigations, occupational issues, child custody, etc. Any positive result is only presumptive and must be confirmed with a separate confirmatory test ordered by the physician. Drug Screening Test Cutoff Values: AMPHETAMINES 500 ng/mL BARBITURATES 200 ng/mL BENZODIAZEPINES 150 ng/mL CANNABINOIDS(THC) 50 ng/mL COCAINE 150 ng/mL METHADONE 200 ng/mL METHAMPHETAMINE 500 ng/mL OPIATES 100 ng/mL OXYCODONE 100 ng/mL PHENCYCLIDINE(PCP) 25 ng/mL TRICYCLICS 300 ng/mL Pedro Hernandez DO LAB - URINE CHEMISTR Y ORDERABLES Performing Organization Address [facility]/ZIP Co de Phone Number [facility] [address] [place] [address] * HCG URINE QUALITATIVE - POCT (IP) INTERFACED (12/12/2023 4:35 PM CDT) HCG Qual Urine Negative Negative 12/12/2023 5:35 PM CDT [facility] Urine URINE / Unknown Collection / Unknown 12/12/2023 4:35 PM CDT 12/12/2023 4:35 PM CDT Pedro Hernandez DO LAB - POINT OF CARE ORDERABLES Performing Organization Address [facility] de Phone Number [facility] [address] [place] [address] * (ABNORMAL) URINE DRUG SCREEN IMMUNOASSAY (11/13/2023 11:17 AM CDT) Amphetamines Screen Urine Not detected Not detected 11/13/2023 11:51 AM CDT [facility] Barbiturates Screen Urine Not detected Not detected 11/13/2023 11:51 AM CDT [facility] Benzodiazepines Screen Urine Not detected Not detected 11/13/2023 11:51 AM CDT [facility] Cannabinoids Screen Urine Detected(A) Not detected 11/13/2023 11:51 AM CDT [facility] Cocaine Screen Urine Not detected Not detected 11/13/2023 11:51 AM CDT [facility] Fentanyl Urine Not detected Not detected 11/13/2023 11:51 AM CDT [facility] Methadone Screen Urine Not detected Not detected 11/13/2023 11:51 AM CDT [facility] Opiate Screen Urine Not detected Not detected 11/13/2023 11:51 AM CDT [facility] Phencyclidine Screen Urine Not detected Not detected 11/13/2023 11:51 AM CDT [facility] Urine URINE / Unknown Collection / Unknown 11/13/2023 11:17 AM CDT 11/13/2023 11:34 AM CDT Narrative [facility] - 11/13/2023 11:51 AM CDT This drug screen is designed for MEDICAL purposes only. It is not to be used for legal purposes, including but not limited to worker's comp, police investigations, occupational issues, child custody, etc. Any positive result is only presumptive and must be confirmed with a separate confirmatory test ordered by the physician. Drug Screening Test Cutoff Values: AMPHETAMINES 1000 ng/mL BARBITURATES 200 ng/mL BENZODIAZEPINES 200 ng/mL CANNABINOIDS(THC) 50 ng/mL COCAINE 300 ng/mL FENTANYL 1 ng/mL METHADONE 300 ng/mL OPIATES 300 ng/mL PHENCYCLIDINE(PCP) 25 ng/mL Monae Garcia SUPERVISOR FISH BAIT PROCESSING-SCHOOL SUPERVISOR LAB - URINE CHEMI STRY ORDERABLES Performing Organization Address [facility] de Phone Number [facility] [id number] [place] [id number] * SYPHILIS ANTIBODY CASCADING REFLEX (11/13/2023 6:09 AM CDT) Treponema pallidum Antibody Non Reactive Non Reactive 11/13/2023 9:54 AM CDT [facility] Comment: No Laboratory evidence of syphilis infection. Note: Circulating antibodies may be low or undetectable in early infection. If recent exposure is suspected, re-draw sample in 2-4 weeks and repeat testing. Blood BLOOD SPECIMEN / Unknown Venipuncture / Unknown 11/13/2023 6:09 AM CDT 11/13/2023 6:17 AM CDT Monae Garcia SUPERVISOR FISH BAIT PROCESSING-SCHOOL SUPERVISOR LAB - SEROLOGY OR DERABLES Performing Organization Address [facility] de Phone Number [facility] [id number] [place] [id number] * LITHIUM LEVEL (11/13/2023 6:09 AM CDT) [place] 1.0 0.6 - 1.2 mmol/L 11/13/2023 3:13 PM CDT [facility] Blood BLOOD SPECIMEN / Unknown Venipuncture / Unknown 11/13/2023 6:09 AM CDT 11/13/2023 6:16 AM CDT Monae Garcia SUPERVISOR FISH BAIT PROCESSING-SCHOOL SUPERVISOR LAB - CHEMISTRY O RDERABLES Performing Organization Address City/[facility]/ZIP Co de Phone Number [facility] [facility] [address] [place] [address] * HCG BLOOD QUALITATIVE (11/13/2023 6:09 AM CDT) HCG Qual Serum Negative Negative 11/13/2023 6:34 AM CDT [facility] Blood BLOOD SPECIMEN / Unknown Venipuncture / Unknown 11/13/2023 6:09 AM CDT 11/13/2023 6:17 AM CDT Narrative [facility] - 11/13/2023 6:34 AM CDT Specimens containing human anti-mouse antibodies may exhibit false positive or false negative results. If qualitative interpretation is inconsistent with clinical evaluation, consider confirmation by an alternative hCG method. Monae Garcia SUPERVISOR [employer]ESSING-[facility] LAB - CHEMISTRY O RDERABLES Performing Organization Address [facility] Co de Phone Number [facility] [address] [place] [phone] * FRACTIONAL EXHALED NITRIC OXIDE (12/06/2021 11:12 AM CDT) Impressions [facility] - 12/06/2021 11:12 AM CDT [facility] DEPARTMENT OF PULMONARY, CRITICAL CARE, AND SLEEP MEDICINE EXHALED NITRIC OXIDE (FeNO) Kerline Nice 12/07/2021 INTERPRETATION The measurement of fractional exhaled nitric oxide (FENO) was 22 ppb. IMPRESSION: 1. High normal fractional exhaled nitric oxide. 2. Compared to previous study on 10/05/2016, FENO increased from 14 to 22 Carmine Landis MD Pulmonary & Critical Care Fellow Division of Pulmonary, Critical Care and Sleep Medicine [employer] [facility] I have personally reviewed and agree with the fellow's interpretation. Tip Gonzalez MD Narrative [facility] - 12/06/2021 11:12 AM CDT Carmine Lou MD 12/07/2021 12:45 PM Alexandr Hayes MD RESPIRATORY THERAPY ORDERABLES Performing Organization Address [facility] Co de Phone Number [place] [phone] [place] [address], [facility] * COMPLETE PFT W/WO BRONCHODILATOR (12/06/2021 11:12 AM CDT) Impressions [facility] - 12/06/2021 11:12 AM CDT [facility] DEPARTMENT OF PULMONARY, CRITICAL CARE, AND SLEEP MEDICINE PULMONARY FUNCTION TEST Please see technologist's comments mentioned in the report. INTERPRETATION: SPIROMETRY: FVC: normal. FEV1: normal. FEV1/FVC ratio is decreased (64%). BRONCHODILATOR RESPONSE: There is no significant response to bronchodilator therapy, however this does not mean the patient would not benefit from bronchodilator therapy. FLOW-VOLUME LOOPS: Inspection of the flow-volume loops shows scooping of the expiratory limbs. LUNG VOLUMES: Lung volumes by body plethysmography show mild hyperinflation based on TLC (120- 135% pred) and moderate air-trapping based on RV (135-150% pred). DIFFUSION CAPACITY DLCO: Unadjusted for Hb and COHb is normal. DLCO: Corrected for Hb and COHb is not performed. AIRWAY RESISTANCE The airway resistance is normal and the specific conductance is normal. ARTERIAL BLOOD GAS ANALYSIS: Not performed. IMPRESSION: 1. Mild obstructive ventilatory limitation. There is mild hyperinflation and moderate air trapping. 2. Uncorrected DLCO is normal. 3. No significant bronchodilator response, however this does not preclude the use of bronchodilators. 4. Compared with previous study on 08/26/2018, FEV1 increased 290 ml, FVC increased 170 ml, TLC , and DLCO no significant changes. Carmine Landis MD Pulmonary Disease & Critical Care Fellow Division of Pulmonary, Critical Care and Sleep Medicine [employer] [facility] I have personally reviewed and agree with the fellow's interpretation. Tip Gonzalez MD Narrative [facility] - 12/06/2021 11:12 AM CDT Carmine Lou MD 12/07/2021 12:45 PM Alexandr Hayes MD RESPIRATORY THERAPY ORDERABLES Performing Organization Address [facility] Co de Phone Number [place] [phone] [address] * (ABNORMAL) COMPLETE PFT W/WO BRONCHODILATOR (09/07/2018 5:59 PM CDT) Impressions Bubba Lugo MD - 09/07/2018 5:59 PM CDT [facility] DEPARTMENT OF PULMONARY, CRITICAL CARE, AND SLEEP MEDICINE PULMONARY FUNCTION TESTS Kerline Nice 08/28/2018 INTERPRETATION Please see technologist's comments mentioned above. SPIROMETRY: Forced vital capacity is normal. FEV1 is normal. FEV1/FVC ratio is reduced. There is no significant response to bronchodilator administration. The inspection of the patient's flow-volume loops shows abnormal configuration of the inspiratory and expiratory limbs consistent with obstruction. LUNG VOLUMES: Lung volumes by body plethysmography reveals a mildly elevated TLC and RV. DLCO: Diffusing capacity unadjusted for Hb and COHb is mildly reduced. AIRWAY RESISTANCE: The airway resistance and the specific conductance are normal. IMPRESSION: 1. Mild obstructive ventilatory limitation. 2. No significant bronchodilator response, this however does not preclude the use of bronchodilators if clinically indicated. 3. Mild air trapping and hyperinflation. 4. Mildly reduced unadjusted DLCO. 5. Compared to a study done on 10/05/16; significant decrease in the TLC is noted. Miracle Murdock MD I have reviewed this study and agree with the interpretation by the Pole Shaver. Bubba Lugo M.D. [employer] of Internal Medicine Division of Pulmonary, Critical Care and Sleep Medicine [employer] Narrative Bubba Lugo MD - 09/07/2018 5:59 PM CDT Miracle Murdock MD 08/28/2018 2:17 PM Alexandr Hayes MD RESPIRATORY THERAPY ORDERABLES * INTERPRETATION (7) (11/27/2016 11:49 AM CDT) See Note See Below [facility] Comment: Specific Level of Allergen IGE Class kU/L Specific IGE Antibody ----- --------- 0 <0.10 Absent/Undetectable 0/1 0.10-0.34 Very Low Level 1 0.35-0.69 Low Level 2 0.70-3.49 Moderate Level 3 3.50-17.4 High Level 4 17.5-49.9 Very High Level 5 50-100 Very High Level 6 >100 Very High Level The clinical relevance of allergen results of 0.10-0.34 kU/L are undetermined and intended for specialist use. Allergens denoted with a '' include results using one or more analyte specific reagents. In those cases, the test was developed and its analytical performance characteristics have been determined by [employer]. It has not been cleared or approved by the U.S. Food and Drug Administration. This assay has been validated pursuant to the CLIA regulations and is used for clinical purposes. Test Performed at: [email or web address] [id number] [place] [address] TAMANNA CONDE DO,MPH 11/27/2016 11:4 9 AM CDT 11/27/2016 11:51 AM CDT Aleaxndr Hayes MD LAB - SEROLOGY EDWINA GLEZ [facility] * (ABNORMAL) ALLERGEN RESPIRATORY PROFILE ([place]) (11/27/2016 11:49 AM CDT) Dermatophagoides <0.10 kU/L [facility] Class 0 [facility] Dermatophagoides farinae <0.10 kU/L [facility] Class 0 [facility] Penicillium notatum 0.15(H) kU/L [facility] Class 0/1 [facility]) Cladosporium herbarum <0.10 kU/L [facility] Class 0 [facility] Allergen Aspergillus fumigatus (M3) IGE 0.20(H) kU/L [facility] Class 0/1 [facility] Allergen Alternaria alternata M6 6.41(H) kU/L [facility] Class 3 [facility] Allergen Cat Epithelium And <0.10 kU/L [facility] Class 0 [facility]) Allergen Dog Dander IgE <0.10 kU/L [facility] Class 0 [facility]) Allergen Cockroach <0.10 kU/L [facility] Class 0 [facility]) Allergen Marion IgE <0.10 kU/L [facility] Class 0 [facility]) Allergen Mountain Angelina Tree <0.10 kU/L [facility] Class 0 [facility] Treynor Tree 0.12(H) kU/L [facility] Class 0/1 [facility] Allergen [place] Tree 0.12(H) kU/L [facility] Class 0/1 [facility] Allergen Purdin Tree <0.10 kU/L [facility] Class 0 [facility] White Ant Tree 0.17(H) kU/L [facility] Class 0/1 [facility] Allergen Brooklyn (T7) IgE <0.10 kU/L [facility] Class 0 [facility]) Allergen Elm IgE 0.16(H) kU/L [facility] Class 0/1 [facility] Allergen Pecan/Aiken Tree IgE <0.10 kU/L [facility] Class 0 [facility] Allergen T070 White Kendalia <0.10 kU/L [facility] Class 0 [facility]) Allergen Bermuda Grass <0.10 kU/L [facility] Class 0 [facility]) Allergen Claudy Grass <0.10 kU/L [facility] Class 0 [facility] Allergen Common Ragweed Short <0.10 kU/L [facility] Class 0 [facility] Allergen Rough Pigweed IgE 0.19(H) kU/L [facility] Class 0/1 [facility]) Allergen Barbadian Thistle IgE <0.10 kU/L [facility] Class 0 [facility]) Allergen Rough Marshelder 0.14(H) kU/L [facility] Class 0/1 [facility] Allergen Mouse Urine Proteins <0.10 kU/L [facility] Class 0 [facility] IgE Total 44 <EX=140 kU/L [facility] Comment: Test Performed at: [email or web address] [address] [place] [address] TAMANNA CONDE DO,MPH 11/27/2016 11:4 9 AM CDT 11/27/2016 11:51 AM CDT Alexandr Hayes MD LAB - CHEMISTRY ORD ERABLES [facility] * [id number] BLOOD (11/27/2016 11:49 AM CDT) Uoloh-0-Vqrsaweo sin 126 83 - 199 mg/dL [facility] Comment: Test Performed at: [employer] [address] [place] [address] TAMANNA CONDE DO,MPH 11/27/2016 11:4 9 AM CDT 11/27/2016 11:51 AM CDT Alexandr Hayes MD LAB - CHEMISTRY ORD ERABLES Performing Organization Address City/[facility]/ZIP Co de Phone Number [facility] * COMPLETE PFT W/WO BRONCHODILATOR (10/05/2016 9:13 AM CDT) Impressions [facility] - 10/05/2016 9:13 AM CDT [facility] DEPARTMENT OF PULMONARY, CRITICAL CARE, AND SLEEP MEDICINE PULMONARY FUNCTION TESTS Kerline Nice 36 y.o. BMI is 30.1 10/10/2016 INTERPRETATION Please see technologist's comments mentioned above. SPIROMETRY: FEV1/FVC ratio is decreased . FEV1 is normal. Forced vital capacity is normal. There is significant response to bronchodilator administration. Inspection of the patient's flow-volume loops shows normal configuration of the inspiratory limb and obstructive pattern of expiratory limbs. LUNG VOLUMES: By body plethysmography: moderate elevation in RV which improves to mild with bronchodilator. TLC is mildly elevated. Remainder of lung volumes are within normal limits. DLCO: Diffusing capacity unadjusted for Hb and COHb is within normal limits. AIRWAY RESISTANCE: The airway resistance and the specific conductance are normal after bronchodilator administration. IMPRESSION: 1. Mild obstructive ventilatory limitation. 2. There is a significant response to bronchodilator administration. 3. Mild air trapping with mild hyperinflattion 4. There is no previous study available for comparison. Victor Manuel Quintanilla MD Pulmonary / Critical Care Fellow Division of Pulmonary, Critical Care, & Sleep Medicine [facility] I have personally reviewed the test and agreed with the interpretation. Arsen Wilkerson M.D., [facility] Narrative Procedure Note Provider, MD Cliff - 07/27/2017 IMPRESSION [facility] DEPARTMENT OF PULMONARY, CRITICAL CARE, AND SLEEP MEDICINE PULMONARY FUNCTION TESTS Kerline Nice 36 y.o. BMI is 30.1 10/10/2016 INTERPRETATION Please see technologist's comments mentioned above. SPIROMETRY: FEV1/FVC ratio is decreased . FEV1 is normal. Forced vital capacity is normal. There is significant response to bronchodilator administration. Inspection of the patient's flow-volume loops shows normal configurationof the inspiratory limb and obstructive pattern of expiratory limbs. LUNG VOLUMES: By body plethysmography: moderate elevation in RV whichimproves to mild with bronchodilator. TLC is mildly elevated. Remainderof lung volumes are within normal limits. DLCO: Diffusing capacity unadjusted for Hb and COHb is within normallimits. AIRWAY RESISTANCE: The airway resistance and the specific conductance arenormal after bronchodilator administration. IMPRESSION: 1. Mild obstructive ventilatory limitation. 2. There is a significant response to bronchodilator administration. 3. Mild air trapping with mild hyperinflattion 4. There is no previous study available for comparison. Victor Manuel Quintanilla MD Pulmonary / Critical Care Fellow Division of Pulmonary, Critical Care, & Sleep Medicine [facility] I have personally reviewed the test and agreed with the interpretation. Arsen Wilkerson M.D., [facility] Alexandr Hayes MD RESPIRATORY THERAPY ORDERABLES Performing Organization Address [facility] Co de Phone Number [facility] * LAB HISTORICAL RESULTS-ONBASE (08/16/2013) Only the most recent of2 resultswithin the time period is included. 08/16/2013 Narrative [facility] - 09/23/2013 10:34 AM CDT Historical Provider LAB - CHEMISTRY O RDERABLES Performing Organization Address [facility] Co de Phone Number [facility] [address] * (ABNORMAL) C-REACTIVE PROTEIN (06/25/2012 4:14 PM CDT) Only the most recent of2 resultswithin the time period is included. C-Reactive Protein 12.5(H) 0.0 - 4.9 mg/L [facility] ([facility]) 06/25/2012 4:14 PM CDT 06/25/2012 6:31 PM CDT Narrative [facility] ([facility]) - 06/26/2012 3:19 PM CDT Performed at: 01 - [address] [id number] Adolescent Specialist: Stephen An PhD, Phone: [phone] Specimen Comment: A courtesy copy of this report has been sent to Specimen Comment: [phone]. Cyndie Fisher MD LAB - CHEMISTRY O RDERABLES [facility] * VITAMIN D 25-HYDROXY (06/25/2012 4:14 PM CDT) Only the most recent of2 resultswithin the time period is included. Vitamin D, 25 Hydroxy 32.2 30.0 - 100.0 ng/mL [facility] ([facility]) Comment: Vitamin D deficiency has been defined by the [place] of Medicine and an Endocrine Society practice guideline as a level of serum 25-OH vitamin D less than 20 ng/mL (1,2). The Endocrine Society went on to further define vitamin D insufficiency as a level between 21 and 29 ng/mL (2). 1. IOM ([place] of Medicine). 2010. Dietary reference intakes for calcium and D. [place]: The National Academies Press. 2. Demario MF, Araseli NC, Baljinder CELIS, et al. Evaluation, treatment, and prevention of vitamin D deficiency: an Endocrine Society clinical practice guideline. JCEM. 2010; 96(7):1911-30. 06/25/2012 4:14 PM CDT 06/25/2012 6:31 PM CDT Narrative [facility] ([facility]) - 06/26/2012 3:19 PM CDT Performed at: [address] [place] [id number] Adolescent Specialist: Stephen An PhD, Phone: [phone] Specimen Comment: A courtesy copy of this report has been sent to Specimen Comment: [phone]. Cyndie Fisher MD LAB - CHEMISTRY O RDHAYLEE Performing Organization Address [facility] Co de Phone Number [facility] ([facility]) * ALDOLASE (06/25/2012 4:14 PM CDT) Aldolase 4.9 1.2 - 7.6 U/L [facility] ([facility]) 06/25/2012 4:14 PM CDT 06/25/2012 6:31 PM CDT Narrative [facility] [facility]) - 06/26/2012 3:19 PM CDT Performed at: [address] [place] [id number] Adolescent Specialist: Stephen An PhD, Phone: [phone] Specimen Comment: A courtesy copy of this report has been sent to Specimen Comment: [phone]. Cyndie Fisher MD LAB - CHEMISTRY O NADINE Performing Organization Address [facility] de Phone Number [facility] ([facility]) * ERYTHROCYTE SEDIMENTATION RATE (06/25/2012 4:14 PM CDT) Only the most recent of2 resultswithin the time period is included. Erythrocyte Sedimentation Rate Westergren 8 0 - 32 mm/hr [facility] ([facility]) 06/25/2012 4:14 PM CDT 06/25/2012 6:31 PM CDT Narrative [facility] - 06/26/2012 3:19 PM CDT Performed at: [address] [place] [id number] Adolescent Specialist: Stephen An PhD, Phone: [phone] Specimen Comment: A courtesy copy of this report has been sent to Specimen Comment: [phone]. Cyndie Fisher MD LAB - HEMATOLOGY ORDERABLES Performing Organization Address City/[facility] Co de Phone Number [facility] ([place]) * CK BLOOD (06/25/2012 4:14 PM CDT) Only the most recent of2 resultswithin the time period is included. CK Total 42 24 - 173 U/L [facility] ([facility] 06/25/2012 4:14 PM CDT 06/25/2012 6:31 PM CDT Narrative [facility] ([facility]) - 06/26/2012 3:19 PM CDT Performed at: [address] [place] [address] Adolescent Specialist: Stephen An PhD, Phone: [phone] Specimen Comment: A courtesy copy of this report has been sent to Specimen Comment: [phone]. Cyndie Fisher MD LAB - CHEMISTRY O RDERABLES [facility] ([facility]) Care Teams Cuff Setter Overlock Relationship Specialty Start Date End Date Austin Longoria MD PCP - General 10/05/16
--- OUTSIDE RECORDS SUMMARY | 2024-04-30 14:51 | XMS_ITS ---
Author Organization [facility] [employer] [facility] Address [address] [facility] [address] [place] [address] Care Team Providers Care Charter Boat Captain Name Role Phone Austin Longoria MD Primary Care Provider Unavailab Anjel Robles Unavailable [phone] Migration, Provider Unavailable Unavailable RE[place]ON [place]IT [place] [place] Social History Sex Assigned At : Social History Observation Description Sex Assigned At Female Encounters Encounter Location Date Provider Diagnosis [facility] [place] [employer] [place] [id number] [place] [address] 07/07/2023 Provider Migration Plan Of Treatment Next Appt Details Provider Name:Anjel Espinoza , 05/09/2024 04:15:00 PM, [address], [facility] [address], [place], [address], Progress Notes * AGNIESZKA ZIGGYDOB:1980 (43 yo F)Acc No.[id number]:07/07/2023 Patient: ZIGGY JACOB :1980 A ge:42 Y [...]
[2024-04-30 15:36] VITALS: BP 112/76; PULSE 88; RESP 16; O2SAT 97
[2024-04-30] MEDS: LACTATED RINGERS 1,000 ML 999 ML IV CONT (15:36)
--- OUTSIDE RECORDS SUMMARY | 2024-04-30 15:43 | XMS_ITS | Patient Health Summary ---
Author Organization [facility] Address [address] [place] [address] Care Team Providers Care Supply Planner Name Role Phone Austin Longoria MD Primary Care Provider [phone] Note from [facility],non-owned Affiliates and Associated Physician Practices is amultiple site organization consisting of ambulatory clinics and hospital sitesin [place], [place], [place] and [place]. This disclosure is being madepursuant to the Care Everywhere program and may not contain all information available regarding this patient. Last updated 17.[facility] Allergies * Penicillins(Skin Reactions) -Medium Criticality * [...] Recorded Patient Health Questionnaire-2 Score 3 05/09/2023 [facility] of Occupat ional Health - Occupational Stress [...] place to sleep or slept in a mcfp (including now)? No 11/12/2023 Housing Stability Vital [...] any time in the past 12 m [facility], were you homeless or living in a mcfp (including now)? Patient declined 12/13/2023 Sex and Gender Information Value Date Recorded Sex Assigned at Not on file Gender Identity Not on file Sexual Orientation Not on file Last Filed Vital Signs Vital Sign Reading Time Taken Comments Blood Pressure 116/84 02/27/2024 2:04 PM OVERLOCK ELASTIC ATTACHER Pulse 79 02/27/2024 2:04 PM OVERLOCK ELASTIC ATTACHER Temperature 36.6 C (97.9 F) 12/18/2023 7:43 AM CDT Respiratory Rate 16 12/18/2023 7:43 AM CDT Oxygen Saturation 99% 12/18/2023 7:43 AM CDT Inhaled Oxygen Concentration - - Weight 86.6 kg (191 lb) 02/27/2024 2:04 PM OVERLOCK ELASTIC ATTACHER Height 167.6 cm (5' 6 ) 02/27/2024 2:04 PM OVERLOCK ELASTIC ATTACHER Body Mass Index 30.83 02/27/2024 2:04 PM OVERLOCK ELASTIC ATTACHER Procedures * LAB RESULTS ORDER(Performed 03/05/2024) * [...] persistent (HCC) * INTERPRETATION (7)(Performed 11/27/2016) * [id number] BLOOD(Performed 11/27/2016) * ALLERGEN RESPIRATORY PNL REGION [...] * CBC WITH DIFFERENTIAL (03/04/2024 12:35 PM OVERLOCK ELASTIC ATTACHER) Only the most recent of5 resultswithin the [...] [facility] INSURANCE BILL 03/04/2024 12:3 5 PM OVERLOCK ELASTIC ATTACHER 03/04/2024 Narrative [facility] INSURANCE BILL - 03/05/2024 10:36 AM OVERLOCK ELASTIC ATTACHER Performed at: [address] [id number] Product Safety Engineer: Kar Araiza PhD, Phone: [phone] Specimen Comment: A courtesy copy of this report has been sent to [phone] Alexandr Hayes MD LAB - HEMATOLOGY OR DERABLES [facility] INSURANCE BILL [address] [place] [address] * URINALYSIS REFLEX TO MICROSCOPIC NO CULTURE (12/17/2023 2:56 PM CDT) Only the most recent of2 resultswithin the time period is included. Pathologist [facility] Color UA Straw Straw, Yellow 12/17/2023 5:39 PM CDT [facility] Clarity UA Clear Clear 12/17/2023 5:39 PM CDT [facility] Glucose UA Negative Negative 12/17/2023 5:39 PM CDT [facility] Bilirubin UA Negative Negative 12/17/2023 5:39 PM CDT [facility] Ketone UA Negative Negative 12/17/2023 5:39 PM CDT [facility] Specific [place] UA 1.005 1.005 - 1.030 12/17/2023 5:39 PM CDT [facility] Blood UA Negative Negative 12/17/2023 5:39 PM CDT [facility] pH UA 5.0 5.0 - 8.0 pH 12/17/2023 5:39 PM CDT [facility] Protein UA Negative Negative 12/17/2023 5:39 PM CDT [facility] Urobilinogen UA Negative Negative mg/dL 12/17/2023 5:39 PM CDT [facility] Nitrite UA Negative Negative 12/17/2023 5:39 PM CDT [facility] Leukocyte UA Negative Negative 12/17/2023 5:39 PM CDT [facility] Urine Microscopy Urine microscopy not indicated 12/17/2023 5:39 PM CDT [facility] Urine URINE SPECIMEN OBTAINED BY CLEAN CATCH PROCEDURE / Unknown Collection / Unknown 12/17/2023 2:56 PM CDT 12/17/2023 5:34 PM CDT Narrative [facility] - 12/17/2023 5:39 PM CDT Gato Hills MD LAB - URINALYSIS ORD ERABLES [facility] [address] [place] [address] * (ABNORMAL) GLUCOSE - POINT OF CARE (12/17/2023 1:22 AM CDT) Only the most recent of3 resultswithin the time period is included. [facility] Glucose WB/POC 107(H) 70 - 99 mg/dL 12/17/2023 1:28 AM CDT [facility] Specimen Type Cap Fingerstick 2023 1:28 AM CDT [facility] Blood BLOOD SPECIMEN / Unknown 12/17/2023 1:22 AM CDT 12/17/2023 1:28 AM CDT Samy Raygoza MD LAB - POINT OF CARE ORDERABLES [facility] [address] [phone] * (ABNORMAL) BASIC METABOLIC PANEL (CALCIUM TOTAL) (12/15/2023 7:22 AM CDT) [facility] Glucose 94 70 - 99 mg/dL 12/15/2023 10:39 AM CDT [facility] Sodium 143 136 - 145 mmol/L 12/15/2023 10:39 AM CDT [facility] Potassium 4.1 3.5 - 5.1 mmol/L 12/15/2023 10:39 AM CDT [facility] Chloride 106 98 - 107 mmol/L 12/15/2023 10:39 AM CDT [facility] CO2 26 22 - 29 mmol/L 12/15/2023 10:39 AM [facility] Calcium 10.1 8.4 - 10.4 mg/dL 12/15/2023 10:39 AM [facility] Anion Gap 11 6 - 16 mmol/L 12/15/2023 10:39 AM CDT [facility] BUN 18 5.3 - 18.7 mg/dL 12/15/2023 10:39 AM CDT [facility] Creatinine 0.88 0.57 - 1.11 mg/dL 12/15/2023 10:39 AM [facility] eGFR by CKD-EPI 83(L) >=90 mL/min/1.7 3 m2 12/15/2023 10:39 AM T [facility] Blood BLOOD SPECIMEN / Unknown Venipuncture / Unknown 12/15/2023 7:22 AM CDT 12/15/2023 8:46 AM CDT [place] MD LAB - CHEMISTRY ORDJennifer GLEZ [facility] [address] [place] [address] * TSH REFLEX FREE T4 (12/14/2023 7:07 AM CDT) Only the most recent of2 resultswithin the time period is included. TSH 0.574 0.350 - 4.940 uIU/mL 12/14/2023 10:51 AM CDT [facility] Blood BLOOD SPECIMEN / Unknown Venipuncture / Unknown 12/14/2023 7:07 AM CDT 12/14/2023 7:27 AM CDT Jerad Cox SOLAR SALES SPECIALIST-DIRECTOR TRADE LAB - CHEMISTRY ORDERABLES [facility] [address] [place] [address] * HEMOGLOBIN A1C (12/14/2023 7:07 AM CDT) Only the most recent of2 resultswithin the time period is included. Hemoglobin A1c 5.2 <5.7 % 12/14/2023 10:47 AM CDT [facility] Estimated Average Glucose 103 mg/dL 12/14/2023 10:47 AM CDT [facility] Blood BLOOD SPECIMEN / Unknown Venipuncture / Unknown 12/14/2023 7:07 AM CDT 12/14/2023 7:23 AM CDT Narrative [facility] - 12/14/2023 10:47 AM CDT HbA1c [...] Standardization Program (NGSP) certified method. Jerad Cox SOLAR SALES SPECIALIST-DIRECTOR TRADE LAB - CHEMISTRY ORDERABLES [facility] [address] [place] [address] * (ABNORMAL) COMPREHENSIVE METABOLIC PANEL (12/14/2023 7:07 AM CDT) Only the most recent of6 resultswithin the time period is included. Glucose 106(H) 70 - 99 mg/dL 12/14/2023 10:[facility] Sodium 140 136 - 145 mmol/L 12/14/2023 10:31 AM CDT [facility] Potassium 5.3(H) 3.5 - 5.1 mmol/L 12/14/2023 10:31 AM [facility] Chloride 107 98 - 107 mmol/L 12/14/2023 10:31 [facility] CO2 24 22 - 29 mmol/L 12/14/2023 10:31 AM [facility] Calcium 10.3 8.4 - 10.4 mg/dL 12/14/2023 10:31 AM [facility] Anion Gap 9 6 - 16 mmol/L 12/14/2023 10:31 [facility] BUN 14 5.3 - 18.7 mg/dL 12/14/2023 10:31 AM [facility] Creatinine 0.91 0.57 - 1.11 mg/dL 12/14/2023 10:31 AM [facility] Alkaline Phosphatase 55 40 - 150 U/L 12/14/2023 10:31 [facility] ALT 14 0 - 55 U/L 12/14/2023 10:31 [facility] AST 15 5 - 34 U/L 12/14/2023 10:31 AM [facility] Protein Total 7.3 6.4 - 8.3 gm/dL 12/14/2023 10:31 AM [facility] Albumin 4.4 3.4 - 5.0 gm/dL 12/14/2023 10:31 AM CDT [facility] Bilirubin Total 0.4 0.2 - 1.2 mg/dL 12/14/2023 10:31 AM T [facility] eGFR by CKD-EPI 79(L) >=90 mL/min/1.7 3 m2 12/14/2023 10:31 AM CDT [facility] Blood BLOOD SPECIMEN / Unknown Venipuncture / Unknown 12/14/2023 7:07 AM CDT 12/14/2023 7:26 AM CDT Jerad Cox SOLAR SALES SPECIAL[facility]NEW [facility] LAB - CHEMISTRY ORDERABLES Performing Organization Address City/[facility]/ZIP Co de Phone Number [facility] [address] [place] [address] * (ABNORMAL) LIPID PROFILE (12/14/2023 7:07 AM CDT) Only the most recent of2 resultswithin the time period is included. [facility] Signature Cholesterol 180 <200 mg/dL 12/14/2023 10:29 AM CDT [facility] Triglycerides 316(H) <150 mg/dL 12/14/2023 10:29 AM [facility] HDL Cholesterol 25(L) >40 mg/dL 10:29 AM [facility] LDL Calculated 92 <130 mg/dL 12/14/2023 10:29 AM [facility] VLDL Calculated 63(H) <=30 mg/dL 10:29 AM [facility] Chol HDL Ratio 7.2(H) <4.5 12/14/2023 10:29 AM T [facility] LDL/HDL Ratio 3.7 <5.0 12/14/2023 10:29 AM T [facility] Blood BLOOD SPECIMEN / Unknown Venipuncture / Unknown 12/14/2023 7:07 AM CDT 12/14/2023 7:27 AM CDT Jerad Cox SOLAR SALES SPECIALISTNEW [facility] LAB - CHEMISTRY ORDERABLES [facility] [address] [facility] [address] * (ABNORMAL) DRUG SCREEN URINE (12/12/2023 4:38 PM CDT) [facility] Cannabinoids Screen Urine Detected(A) Not detected 12/12/2023 5:39 PM CDT [facility] Phencyclidine Screen Urine Not detected Not detected 12/12/2023 5:39 PM CDT [facility] Cocaine Screen Urine Not detected Not detected 12/12/2023 5:39 PM CDT [facility] Methamphetamine Screen Urine Not detected Not detected 12/12/2023 5:39 PM CDT [facility] Opiate Screen Urine Not detected Not detected 12/12/2023 5:39 PM CDT [facility] Amphetamines Screen Urine Not detected Not detected 12/12/2023 5:39 PM CDT [facility] Benzodiazepines Screen Urine Not detected Not detected 12/12/2023 5:39 PM CDT [facility] Tricyclics Screen Urine Not Detected Not Detected 12/12/2023 5:39 PM CDT [facility] Methadone Screen Urine Not detected Not detected 12/12/2023 5:39 PM CDT [facility] Barbiturates Screen Urine Not detected Not detected 12/12/2023 5:39 PM CDT [facility] Oxycodone Screen Urine Not detected Not detected 12/12/2023 5:39 PM CDT [facility] Urine URINE / Unknown Collection / Unknown 12/12/2023 4:38 PM CDT 12/12/2023 5:14 PM CDT [facility] - 12/12/2023 5:39 PM CDT This [...] Y ORDERABLES Performing Organization Address [facility]/ZIP Co de Phone Number [facility] [address] [place] [address] * HCG URINE QUALITATIVE - POCT (IP) INTERFACED (12/12/2023 4:35 PM CDT) HCG Qual Urine Negative Negative 12/12/2023 5:35 PM CDT [facility] Urine URINE / Unknown Collection / Unknown 12/12/2023 4:35 PM CDT 12/12/2023 4:35 PM CDT Pedro Hernandez DO LAB - POINT OF CARE ORDERABLES Performing Organization Address [facility] de Phone Number [facility] [address] [place] [address] * (ABNORMAL) URINE DRUG SCREEN IMMUNOASSAY (11/13/2023 11:17 AM CDT) Amphetamines Screen Urine Not detected Not detected 11/13/2023 11:51 AM CDT [facility] Barbiturates Screen Urine Not detected Not detected 11/13/2023 11:51 AM CDT [facility] Benzodiazepines Screen Urine Not detected Not detected 11/13/2023 11:51 AM CDT [facility] Cannabinoids Screen Urine Detected(A) Not detected 11/13/2023 11:51 AM CDT [facility] Cocaine Screen Urine Not detected Not detected 11/13/2023 11:51 AM CDT [facility] Fentanyl Urine Not detected Not detected 11/13/2023 11:51 AM CDT [facility] Methadone Screen Urine Not detected Not detected 11/13/2023 11:51 AM CDT [facility] Opiate Screen Urine Not detected Not detected 11/13/2023 11:51 AM CDT [facility] Phencyclidine Screen Urine Not detected Not detected 11/13/2023 11:51 AM CDT [facility] Urine URINE / Unknown Collection / Unknown 11/13/2023 11:17 AM CDT 11/13/2023 11:34 AM CDT Narrative [facility] - 11/13/2023 11:51 AM CDT This [...] 300 ng/mL PHENCYCLIDINE(PCP) 25 ng/mL Monae Garcia SOLAR SALES SPECIALIST-TOP FRAME FITTER LAB - URINE CHEMI STRY ORDERABLES Performing Organization Address [facility] de Phone Number [facility] [id number] [place] [phone] * SYPHILIS ANTIBODY CASCADING REFLEX (11/13/2023 6:09 AM CDT) Treponema pallidum Antibody Non Reactive Non Reactive 11/13/2023 9:54 AM CDT [facility] Comment: No Laboratory evidence of syphilis infection. Note: Circulating antibodies may be low or undetectable in early infection. If recent exposure is suspected, re-draw sample in 2-4 weeks and repeat testing. Blood BLOOD SPECIMEN / Unknown Venipuncture / Unknown 11/13/2023 6:09 AM CDT 11/13/2023 6:17 AM CDT Monae Garcia SOLAR SALES SPECIALIST-TOP FRAME FITTER LAB - SEROLOGY OR DERABLES Performing Organization Address [facility] de Phone Number [facility] [id number] [place] [address] * LITHIUM LEVEL (11/13/2023 6:09 AM CDT) [place] 1.0 0.6 - 1.2 mmol/L 11/13/2023 3:13 PM CDT [facility] Blood BLOOD SPECIMEN / Unknown Venipuncture / Unknown 11/13/2023 6:09 AM CDT 11/13/2023 6:16 AM CDT Monae Garcia SOLAR SALES SPECIALIST-TOP FRAME FITTER LAB - CHEMISTRY O RDERABLES Performing Organization Address City/[facility]/ZIP Co de Phone Number [facility] [address] [place] [address] * HCG BLOOD QUALITATIVE (11/13/2023 6:09 AM CDT) HCG Qual Serum Negative Negative 11/13/2023 6:34 AM CDT [facility] Blood BLOOD SPECIMEN / Unknown Venipuncture / Unknown 11/13/2023 6:09 AM CDT 11/13/2023 6:17 AM CDT Narrative [facility] - 11/13/2023 6:34 AM CDT Specimens containing human anti-mouse antibodies may exhibit false positive or false negative results. If qualitative interpretation is inconsistent with clinical evaluation, consider confirmation by an alternative hCG method. Monae Garcia SOLAR SALES SPECIALIST-[facility] LAB - CHEMISTRY O RDERABLES Performing Organization Address [facility] Co de Phone Number [facility] [address] [place] [phone] * FRACTIONAL EXHALED NITRIC OXIDE (12/06/2021 11:12 AM CDT) Impressions [facility] - 12/06/2021 11:12 AM CDT [facility] DEPARTMENT OF PULMONARY, CRITICAL CARE, AND SLEEP [...] of Pulmonary, Critical Care and Sleep Medicine [facility] I have personally reviewed and agree with the fellow's interpretation. Tip Gonzalez MD Narrative [facility] - 12/06/2021 11:12 AM CDT Carmine Lou MD 12/07/2021 12:45 PM Alexandr Hayes MD RESPIRATORY THERAPY ORDERABLES Performing Organization Address [facility] Co de Phone Number [place] [address] [place] [address], [facility] * COMPLETE PFT W/WO BRONCHODILATOR (12/06/2021 11:12 AM CDT) Impressions [facility] - 12/06/2021 11:12 AM CDT [facility] DEPARTMENT OF PULMONARY, CRITICAL CARE, AND SLEEP [...] of Pulmonary, Critical Care and Sleep Medicine [facility] I have personally reviewed and agree with the fellow's interpretation. Tip Gonzalez MD Narrative [facility] - 12/06/2021 11:12 AM CDT Carmine Lou MD 12/07/2021 12:45 PM Alexandr Hayes MD RESPIRATORY THERAPY ORDERABLES Performing Organization Address [facility] Co de Phone Number [place] [phone] * (ABNORMAL) COMPLETE PFT W/WO BRONCHODILATOR (09/07/2018 5:59 PM CDT) Impressions Bubba Lugo MD - 09/07/2018 5:59 PM CDT [facility] DEPARTMENT OF PULMONARY, CRITICAL CARE, AND SLEEP [...] and agree with the interpretation by the Script Developer. Bubba Lugo M.D. Drafting Instructor of Internal Medicine Division of Pulmonary, Critical Care and Sleep Medicine [facility] Narrative Bubba Lugo MD - 09/07/2018 5:59 PM CDT Miracle Murdock MD 08/28/2018 2:17 PM Alexandr Hayes MD RESPIRATORY THERAPY ORDERABLES * INTERPRETATION (7) (11/27/2016 11:49 AM CDT) See Note See Below [facility] ([facility]) Comment: Specific Level of Allergen IGE Class [...] analytical performance characteristics have been determined by [employer]. It has not been cleared or approved by the U.S. Food and Drug Administration. This assay has been validated pursuant to the CLIA regulations and is used for clinical purposes. Test Performed at: [employer] [email or web address] [address] [place] [address] TAMANNA CONDE DO,MPH 11/27/2016 11:4 9 AM CDT 11/27/2016 11:51 AM CDT Alexandr Hayes MD LAB - SEROLOGY EDWINA GLEZ [facility] ([facility]) * (ABNORMAL) ALLERGEN RESPIRATORY PROFILE ([place]) (11/27/2016 [...] [facility] Class 0 [facility]) Allergen Arbela IgE <0.10 kU/L [facility] Class 0 [facility]) Allergen Mountain Monona Tree <0.10 kU/L [facility] Class 0 [facility]) [place] Tree 0.12(H) kU/L [facility] Class 0/1 [facility]) Allergen [place] Tree 0.12(H) kU/L [facility] Class 0/1 [facility]) Allergen [place] Tree <0.10 kU/L [facility] Class 0 [facility] White Ant Tree 0.17(H) kU/L [facility]) Class 0/1 [facility]) Allergen Concord (T7) IgE <0.10 kU/L [facility] Class 0 [facility]) Allergen Elm IgE 0.16(H) kU/L [facility] Class 0/1 [facility]) Allergen Pecan/Ouray Tree IgE <0.10 kU/L [facility] Class 0 [facility]) Allergen T070 White Delcambre <0.10 kU/L [facility] Class 0 [facility]) Allergen Bermuda Grass <0.10 kU/L [facility] Class 0 [facility]) Allergen Claudy Grass <0.10 kU/L [facility] Class 0 [facility] Allergen Common Ragweed Short <0.10 kU/L [facility] Class 0 [facility] Allergen Rough Pigweed IgE 0.19(H) kU/L [facility] Class 0/1 [facility]) Allergen Syrian Thistle IgE <0.10 kU/L [facility] Class 0 [facility]) Allergen Rough Marshelder 0.14(H) kU/L [facility] Class 0/1 [facility]) Allergen Mouse Urine Proteins <0.10 kU/L [facility] Class 0 [facility] IgE Total 44 <LG=473 kU/L [facility] ([facility]) Comment: Test Performed at: [employer] [facility] [address] [place] [address] TAMANNA CONDE DO,MPH 11/27/2016 11:4 9 AM CDT 11/27/2016 11:51 AM CDT Alexandr Hayes MD LAB - CHEMISTRY ORD ERABLES [facility] ([facility]) * [id number] BLOOD (11/27/2016 11:49 AM CDT) Wlnwm-5-Buzmpuqn sin 126 83 - 199 mg/dL [facility] ([facility]) Comment: Test Performed at: [employer] [address] [place] [address] TAMANNA CONDE DO,MPH 11/27/2016 11:4 9 AM CDT 11/27/2016 11:51 AM CDT Alexandr Hayes MD LAB - CHEMISTRY ORD ERABLES Performing Organization Address City/[facility]/ZIP Co de Phone Number [facility] ([facility]) * COMPLETE PFT W/WO BRONCHODILATOR (10/05/2016 9:13 AM CDT) Impressions [facility] - 10/05/2016 9:13 AM CDT [facility] DEPARTMENT OF PULMONARY, CRITICAL CARE, AND SLEEP [...] of Pulmonary, Critical Care, & Sleep Medicine [facility] I have personally reviewed the test and agreed with the interpretation. Arsen Wilkerson M.D., [facility] Narrative Procedure Note Provider, MD Cliff - 07/27/2017 IMPRESSION [facility] DEPARTMENT OF PULMONARY, CRITICAL CARE, AND SLEEP [...] of Pulmonary, Critical Care, & Sleep Medicine [facility] I have personally reviewed the test and agreed with the interpretation. Arsen Wilkerson M.D., [facility] Alexandr Hayes MD RESPIRATORY THERAPY ORDERABLES Performing Organization Address [facility] Co de Phone Number [facility] * LAB HISTORICAL RESULTS-ONBASE (08/16/2013) Only the most recent of2 resultswithin the time period is included. 08/16/2013 Narrative [facility] - 09/23/2013 10:34 AM CDT Historical Provider LAB - CHEMISTRY O RDERABLES Performing Organization Address [facility] Co de Phone Number [facility] [address] * (ABNORMAL) C-REACTIVE PROTEIN (06/25/2012 4:14 PM CDT) Only the most recent of2 resultswithin the time period is included. C-Reactive Protein 12.5(H) 0.0 - 4.9 mg/L [facility] ([facility]) 06/25/2012 4:14 PM CDT 06/25/2012 6:31 PM CDT Narrative [facility] ([facility]) - 06/26/2012 3:19 PM CDT Performed at: [address] [id number] Product Safety Engineer: Stephen An PhD, Phone: [phone] Specimen Comment: A courtesy copy of this report has been sent to Specimen Comment: [phone]. Cyndie Fisher MD LAB - CHEMISTRY O RDERABLES [facility] * VITAMIN D 25-HYDROXY (06/25/2012 4:14 PM CDT) Only the most recent of2 resultswithin the time period is included. Vitamin D, 25 Hydroxy 32.2 30.0 - 100.0 ng/mL [facility] ([facility]) Comment: Vitamin D deficiency has been defined by the [employer]ford of Medicine and an Endocrine Society practice guideline as a level of serum 25-OH vitamin D less than 20 ng/mL (1,2). The Endocrine Society went on to further define vitamin D insufficiency as a level between 21 and 29 ng/mL (2). 1. IOM (Sanford of Medicine). 2010. Dietary reference intakes for calcium and D. [place]: The National Academies Press. 2. [place] MF, Araseli NC, Baljinder CELIS, et al. Evaluation, treatment, and prevention of vitamin D deficiency: an Endocrine Society clinical practice guideline. JCEM. 2010; 96(7):1911-30. 06/25/2012 4:14 PM CDT 06/25/2012 6:31 PM CDT Narrative [facility] ([facility]) - 06/26/2012 3:19 PM CDT Performed at: [address] [place] [address] [id number] Product Safety Engineer: Stephen An PhD, Phone: [phone] Specimen Comment: A courtesy copy of this report has been sent to Specimen Comment: [phone]. Cyndie Fisher MD LAB - CHEMISTRY O RDHAYLEE Performing Organization Address [facility] Co de Phone Number [facility] ([facility]) * ALDOLASE (06/25/2012 4:14 PM CDT) Aldolase 4.9 1.2 - 7.6 U/L [facility] ([facility]) 06/25/2012 4:14 PM CDT 06/25/2012 6:31 PM CDT Narrative [facility] - 06/26/2012 3:19 PM CDT Performed at: [address] [place] [address] [id number] Product Safety Engineer: Stephen An PhD, Phone: [phone] Specimen Comment: A courtesy copy of this report has been sent to Specimen Comment: [phone]. Cyndie Fisher MD LAB - CHEMISTRY O NADINE Performing Organization Address [facility] de Phone Number [facility] ([facility]) * ERYTHROCYTE SEDIMENTATION RATE (06/25/2012 4:14 PM CDT) Only the most recent of2 resultswithin the time period is included. Erythrocyte Sedimentation Rate Westergren 8 0 - 32 mm/hr [facility] ([facility]) 06/25/2012 4:14 PM CDT 06/25/2012 6:31 PM CDT Narrative [facility]) - 06/26/2012 3:19 PM CDT Performed at: [address] [place] [address] [id number] Product Safety Engineer: Stephen An PhD, Phone: [phone] Specimen Comment: A courtesy copy of this report has been sent to Specimen Comment: [phone]. Cyndie Fisher MD LAB - HEMATOLOGY ORDERABLES Performing Organization Address City/[facility] Co de Phone Number [facility] ([facility]) * CK BLOOD (06/25/2012 4:14 PM CDT) Only the most recent of2 resultswithin the time period is included. CK Total 42 24 - 173 U/L [facility] ([facility]) 06/25/2012 4:14 PM CDT 06/25/2012 6:31 PM CDT Narrative [facility] ([facility]) - 06/26/2012 3:19 PM CDT Performed at: [address] [place] [address] Product Safety Engineer: Stephen An PhD, Phone: [phone] Specimen Comment: A courtesy copy of this report has been sent to Specimen Comment: [phone]. Cyndie Fisher MD LAB - CHEMISTRY O RDERABLES [facility] ([facility]) Care Teams Supply Planner Relationship Specialty Start Date End Date Austin Longoria MD PCP - General 10/05/16
--- OUTSIDE RECORDS SUMMARY | 2024-04-30 15:43 | XMS_ITS | Referral Summary ---
Author Organization [facility] Address [address] [facility] [place] [address] Care Team Providers Care Turntable Worker Name Role Phone Austin Longoria MD Primary Care Provider [phone] Source Comments [facility],non-owned Affiliates and Associated Physician Practices is amultiple site organization consisting of ambulatory clinics and hospital sitesin [place], [place], [place] and [place]. This disclosure is being madepursuant to the Care Everywhere program and may not contain all information available regarding this patient. Last updated 17.[facility] Encounters Date Type Department Care Team Description 02/27/2024 Travel 02/27/2024 3:00 PM SEWER PIPE PRESS OPERATOR Office Visit [facility] Services [address] [place] [address] Alexandr Hayes MD Chronic obstructive pulmonary disease, [...] Recorded Patient Health Questionnaire-2 Score 3 05/09/2023 [facility] - Occupational [...] any time in the past 12 m [facility], were you homeless or living in a usp (including now)? Patient declined 12/13/2023 Sex and Gender Information Value Date Recorded Sex Assigned at Not on file Gender Identity Not on file Sexual Orientation Not on file Last Filed Vital Signs Vital Sign Reading Time Taken Comments Blood Pressure 116/84 02/27/2024 2:04 PM SEWER PIPE PRESS OPERATOR Pulse 79 02/27/2024 2:04 PM SEWER PIPE PRESS OPERATOR Temperature 36.6 C (97.9 F) 12/18/2023 7:43 AM CDT Respiratory Rate 16 12/18/2023 7:43 AM CDT Oxygen Saturation 99% 12/18/2023 7:43 AM CDT Inhaled Oxygen Concentration - - Weight 86.6 kg (191 lb) 02/27/2024 2:04 PM SEWER PIPE PRESS OPERATOR Height 167.6 cm (5' 6 ) 02/27/2024 2:04 PM SEWER PIPE PRESS OPERATOR Body Mass Index 30.83 02/27/2024 2:04 PM SEWER PIPE PRESS OPERATOR Functional Status Functional Status Response Date of [...] Description 08/27/2024 11:20 AM CDT Office Visit [facility] - [facility] Services [address] [place] [address] Alexandr Hayes MD [address] OF PULMONARY/[place] [address] Procedures Procedure Name Priority Date/Time Associated Diagnosis Comments LAB RESULTS ORDER 03/05/2024 CBC W AUTO DIFFERENTIAL Routine 03/04/2024 12:35 PM SEWER PIPE PRESS OPERATOR GLUCOSE - POINT OF CARE Routine 12/17/2023 1:22 AM CDT LIPID PROFILE AM Draw 12/14/2023 7:07 AM CDT from Last 3 Months or Most Recently Relevant to Health Maintenance Results * LAB RESULTS ORDER (03/05/2024) 03/05/2024 Narrative 03/05/2024 Ordered by an unspecified provider. Scanned Document LAB - THERAPEUTIC DR UG MONITORING ORDERABLES * CBC WITH DIFFERENTIAL (03/04/2024 12:35 PM SEWER PIPE PRESS OPERATOR) WBC 7.2 3.4 - 10.8 x10E3/uL [facility] [...] [facility] INSURANCE BILL 03/04/2024 12:3 5 PM SEWER PIPE PRESS OPERATOR 03/04/2024 Narrative [facility] INSURANCE BILL - 03/05/2024 10:36 AM SEWER PIPE PRESS OPERATOR Performed at: 01 - [facility] [address] [place], [place] [id number] Machine Binder Stripper: Kar Araiza PhD, Phone: [phone] Specimen Comment: A courtesy copy of this report has been sent to [phone] Alexandr Hayes MD LAB - HEMATOLOGY OR DERABLES [facility] INSURANCE BILL [address] [place] [address] * (ABNORMAL) GLUCOSE - POINT OF CARE (12/17/2023 1:22 AM CDT) Pathologist [facility] Glucose WB/POC 107(H) 70 - 99 mg/dL 12/17/2023 1:28 AM CDT [facility] Specimen Type Cap Fingerstick 2023 1:28 AM CDT [facility] Blood BLOOD SPECIMEN / Unknown 12/17/2023 1:22 AM CDT 12/17/2023 1:28 AM CDT Samy Raygoza MD LAB - POINT OF CARE ORDERABLES [facility] [address] [place] [address] * (ABNORMAL) LIPID PROFILE (12/14/2023 7:07 AM CDT) Pathologist [facility] Cholesterol 180 <200 mg/dL 12/14/2023 10:29 AM CDT [facility] Triglycerides 316(H) <150 mg/dL 12/14/2023 10:29 AM CDT [facility] HDL Cholesterol 25(L) >40 mg/dL 10:29 AM CDT [facility] LDL Calculated 92 <130 mg/dL 12/14/2023 10:29 AM CDT [facility] VLDL Calculated 63(H) <=30 mg/dL 10:29 AM CDT [facility] Chol HDL Ratio 7.2(H) <4.5 12/14/2023 10:29 AM CDT [facility] LDL/HDL Ratio 3.7 <5.0 12/14/2023 10:29 AM CDT [facility] Blood BLOOD SPECIMEN / Unknown Venipuncture / Unknown 12/14/2023 7:07 AM CDT 12/14/2023 7:27 AM CDT Jerad Cox NUCLEAR POWERPLANT MECHANIC HELPER-FOREPART RASPER LAB - CHEMISTRY ORDERABLES [facility] [address] [place] [address] from Last 3 Months or Most Recently Relevant to Health Maintenance Advance Directives * Full Code (Latest Code Status on File) Date Activated Date Inactivated Comments 12/13/2023 3:32 PM 12/18/2023 2:15 PM * Full Code Date Activated Date Inactivated Comments 11/12/2023 9:16 PM 11/20/2023 2:46 PM Care Teams Turntable Worker Relationship Specialty Start Date End Date Austin Longoria MD PCP - General 10/05/16
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
--- OUTSIDE RECORDS SUMMARY | 2024-04-30 15:44 | XMS_ITS | Encounter Summary ---
Author Organization [facility] Address [address] [place] [address] Care Team Providers Care Building Maintenance Engineer Name Role Phone Austin Longoria MD Primary Care Provider [phone] Reason for Visit * Reason Onset Date Comments MEDICATION REFILL 05/01/2020 Encounter Details Date Type Department Care Team (Late Contact Info) Description 05/01/2020 Refill [facility] [address] [place] [address] Alexandr Hayes MD [address] OF PULMONARY/[place] [address] MEDICATION REFILL Social History Tobacco Use Types [...] Visit [facility] [address] [place] [address] Alexandr Hayes MD [address] OF PULMONARY/[place] [address] documented as of this encounter Visit Diagnoses Diagnosis Chronic obstructive pulmonary disease, unspecified COPD type (HCC) documented in this encounter Care Teams Building Maintenance Engineer Relationship Specialty Start Date End Date Austin Longoria MD PCP - General 10/05/16 documented as of this encounter
--- OUTSIDE RECORDS SUMMARY | 2024-04-30 15:44 | XMS_ITS | Clinical Summary ---
Author Organization [facility] Address [address] [facility] [place] [address] Care Team Providers Care Integrity Engineer Name Role Phone Austin Longoria MD Primary Care Provider [phone] Source Comments [facility],non-owned Affiliates and Associated Physician Practices is amultiple site organization consisting of ambulatory clinics and hospital sitesin [place], [place], [place] and [place]. This disclosure is being madepursuant to the Care Everywhere program and may not contain all information available regarding this patient. Last updated 17.[facility] Allergies Active Allergy Reactions Criticality Noted Date [...] Department Care Team Description 02/27/2024 3:00 PM BROTH MIXER Office Visit [facility] [address] [place] [address] Alexandr Hayes MD Chronic obstructive pulmonary disease, [...] Darlene panic attac ks Bipolar Disorder Brother Darlene Depression Brother Darlene Diabetes Brother Darlene prediabetes; [...] Recorded Patient Health Questionnaire-2 Score 3 05/09/2023 [facility] - [...] place to sleep or slept in a group home (including now)? No 11/12/2023 Housing Stability Vital [...] were you homeless or living in a group home (including now)? Patient declined 12/13/2023 Sex and Gender Information Value Date Recorded Sex Assigned at Not on file Gender Identity Not on file Sexual Orientation Not on file Last Filed Vital Signs Vital Sign Reading Time Taken Comments Blood Pressure 116/84 02/27/2024 2:04 PM BROTH MIXER Pulse 79 02/27/2024 2:04 PM BROTH MIXER Temperature 36.6 C (97.9 F) 12/18/2023 7:43 AM CDT Respiratory Rate 16 12/18/2023 7:43 AM CDT Oxygen Saturation 99% 12/18/2023 7:43 AM CDT Inhaled Oxygen Concentration - - Weight 86.6 kg (191 lb) 02/27/2024 2:04 PM BROTH MIXER Height 167.6 cm (5' 6 ) 02/27/2024 2:04 PM BROTH MIXER Body Mass Index 30.83 02/27/2024 2:04 PM BROTH MIXER Plan of Treatment Upcoming Encounters Date Type Department Care Team (Late st Contact Info) Description 08/27/2024 11:20 AM CDT Office Visit [facility] [address] [place] [address] Alexandr Hayes MD [address] OF PULMONARY/[place] [address] Health Maintenance Due Date Last Done Comments [...] W AUTO DIFFERENTIAL Routine 03/04/2024 12:35 PM BROTH MIXER GLUCOSE - POINT OF CARE Routine 12/17/2023 1:22 AM CDT LIPID PROFILE AM Draw 12/14/2023 7:07 AM CDT from Last 3 Months or Most Recently Relevant to Health Maintenance Results * LAB RESULTS ORDER (03/05/2024) 03/05/2024 Narrative 03/05/2024 Ordered by an unspecified provider. Scanned Document LAB - THERAPEUTIC DR PAGE MONITORING ORDERABLES * CBC WITH DIFFERENTIAL (03/04/2024 12:35 PM BROTH MIXER) WBC 7.2 3.4 - 10.8 x10E3/uL [facility] [...] [facility] INSURANCE BILL 03/04/2024 12:3 5 PM BROTH MIXER 03/04/2024 Narrative [facility] INSURANCE BILL - 03/05/2024 10:36 AM BROTH MIXER Performed at: [address] [id number] Protective Services Social Worker: Kar Araiza PhD, Phone: [phone] Specimen Comment: A courtesy copy of this report has been sent to [phone] Alexandr Hayes MD LAB - HEMATOLOGY OR DERABLES [facility] INSURANCE BILL [address] [place] [address] * (ABNORMAL) GLUCOSE - POINT OF CARE (12/17/2023 1:22 AM CDT) Glucose WB/POC 107(H) 70 - 99 mg/dL 12/17/2023 1:28 AM CDT [facility] Specimen Type Cap Fingerstick 2023 1:28 AM CDT [facility] Blood BLOOD SPECIMEN / Unknown 12/17/2023 1:22 AM CDT 12/17/2023 1:28 AM CDT Samy Raygoza MD LAB - POINT OF CARE ORDERABLES [facility] [address] [place] [address] * (ABNORMAL) LIPID PROFILE (12/14/2023 7:07 AM CDT) Cholesterol 180 <200 mg/dL 12/14/2023 10:29 AM T [facility] Triglycerides 316(H) <150 mg/dL 12/14/2023 10:29 AM T [facility] HDL Cholesterol 25(L) >40 mg/dL 10:29 AM [facility] LDL Calculated 92 <130 mg/dL 12/14/2023 10:29 AM [facility] VLDL Calculated 63(H) <=30 mg/dL 10:29 AM T [facility] Chol HDL Ratio 7.2(H) <4.5 12/14/2023 10:29 AM T [facility] LDL/HDL Ratio 3.7 <5.0 12/14/2023 10:29 AM T [facility] Blood BLOOD SPECIMEN / Unknown Venipuncture / Unknown 12/14/2023 7:07 AM CDT 12/14/2023 7:27 AM CDT Jerad Cox APRN-SPAR MACHINE OPERATOR HELPER LAB - CHEMISTRY ORDERABLES [facility] [address] [place] [address] from Last 3 Months or Most Recently Relevant to Health Maintenance Advance Directives * Full Code (Latest Code Status on File) Date Activated Date Inactivated Comments 12/13/2023 3:32 PM 12/18/2023 2:15 PM * Full Code Date Activated Date Inactivated Comments 11/12/2023 9:16 PM 11/20/2023 2:46 PM Care Teams Integrity Engineer Relationship Specialty Start Date End Date Austin Longoria MD PCP - General 10/05/16
[2024-04-30 17:31] VITALS: BP 107/80; PULSE 79; RESP 18; O2SAT 97
== END 2024-04-30 18:08 | disposition home or self-care (01) ==
PROVIDERS: Emergency Provider Student in an Organized Health Care Education/Training Program; PCP Family Medicine
DX: R11.2 Nausea with vomiting, unspecified (principal); R19.7 Diarrhea, unspecified; E11.9 Type 2 diabetes mellitus without complications; J45.30 Mild persistent asthma, uncomplicated; K21.9 Gastro-esophageal reflux disease without esophagitis; G25.81 Restless legs syndrome; M79.7 Fibromyalgia; G47.33 Obstructive sleep apnea (adult) (pediatric); R53.82 Chronic fatigue, unspecified; F31.9 Bipolar disorder, unspecified; F17.290 Nicotine dependence, other tobacco product, uncomplicated; Z79.85 Long-term (current) use of injectable non-insulin antidiabetic drugs; Z79.899 Other long term (current) drug therapy
CPT/HCPCS: 36415; 74177; 80053; 81001; 81025; 83690; 85025; 96360; 99284; J7120; Q9967

== ENCOUNTER 2024-11-10 08:42 | Emergency (ER) | payer OTHER, SELFPAY ==
[2024-11-10 08:50] VITALS: BP 129/76; PULSE 91; RESP 18; TEMP 36.4; O2SAT 99
[2024-11-10 09:11] LABS: Add Urine Microscopic? YES; Appearance Urine Clear (Clear); Glucose Urine UA Negative (Negative); Leukocyte Esterase Ur Trace LEU/UL (Negative); Nitrate Urine Negative (Negative); Non Pathogenic Casts 0-2; Specific Grav Ur 1.010 (1.001-1.035)
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
--- OUTSIDE RECORDS SUMMARY | 2024-11-10 09:19 | XMS_ITS | Clinical Summary ---
Author Organization [facility] Address [address] [place] [address] Care Team Providers Care Waiter/Waitress Cafeteria Name Role Phone Austin Longoria MD Primary Care Provider [phone] Source Comments [facility],non-owned Affiliates and Associated Physician Practices is amultiple site organization consisting of ambulatory clinics and hospital sitesin [place] and [place]. This disclosure is being madepursuant to the Care Everywhere program and may not contain all information available regarding this patient. Last updated 17.[facility] Allergies Active Allergy Reactions Criticality Noted Date Comments Penicillins Skin Reactions Medium 06/25/2012 Pneumococcal Polysaccharides Fever Medium 020 Sulfa Drugs Rash Medium 06/25/2012 Medications * This document contains information received from the source organization and may not represent a complete record from that organization. * Be aware that medications may not be up to date on this document. Alwaysverify current medications with the patient. montelukast (SINGULAIR) 10 MG tabletIndication s:Asthma 6 05/11/19 17 Active semaglutide (OZEMPIC) 2 MG/1.5ML penIndications:T ype 2 Diabetes Mellitus Inject 0.5 (one-half) mg subcutaneously every 7 days Reasons: Type 2 Diabetes 12 Pen 3 09/27/19 19 Active clonazePAM (KLONOPIN) 1 MG tabletIndication s:Anxiety Take 1 (one) tablet by mouth 3 times daily 1 tablet 7-8 am, 1 tablet 3-4 pm, 1/2 tablet bedtime Reasons: Feeling Anxious 60 tablet 09/17/19 20 Active cetirizine (ZYRTEC) 10 MG tabletIndication s:Seasonal Allergic Rhinitis Take 1 tablet by mouth once daily 90 tablet 3 11/24/19 20 Active propranolol ER 24hr (Inderal LA) 60 MG capsuleIndicatio ns:Anxiety Take 1 (one) capsule by mouth once daily Reasons: Feeling Anxious Active albuterol HFA (Proventil; Ventolin; Proair) 108 (90 Base) MCG/ACT inhalerIndicatio ns:Asthma INHALE 2 PUFFS BY MOUTH EVERY 6 HOURS NEEDED 8.5 g 11 05/29/19 24 Active tiZANidine (Zanaflex) 2 MG tabletIndication s:Musculoskeleta l Pain Take 1 (one) tablet by mouth 3 times daily as needed for Muscle Spasms Reasons: Musculoskeletal Pain Active pantoprazole EC (Protonix) 40 MG tabletIndication s:Gastroesophage al Reflux Disease Take 1 (one) tablet by mouth once daily Reasons: Gastroesophageal Reflux Disease Active sertraline (Zoloft) 50 MG tabletIndication s:Major Depressive Disorder Take 1 (one) tablet by mouth once daily Reasons: Major Depressive Disorder 30 tablet 1 4 12:42 PM CDT 12/19/19 24 Active nicotine polacrilex (Nicorette) 2 MG gumIndications:N icotine Dependence Take 1 (one) Each by mouth as needed for Smoking Cessation - Gum should be slowly chewed until a peppery taste emerges, then parked between cheek and gum to facilitate nicotine absorption. - Avoid eating or drinking for 15 minutes before and during chewing gum. Reasons: Nicotine Addiction 40 Each 1 12/18/19 24 Active dupilumab (Dupixent) 300 MG/2ML prefilled syringeIndicatio ns:Decompensated COPD with exacerbation (chronic obstructive pulmonary disease) (HCC) Inject 2 mL subcutaneously every 14 days (Maintenance dose) 6 mL 3 02/26/19 25 Active Fluticasone-Umec lidin-Vilant (Trelegy Ellipta) 100-62.5-25 MCG/ACTIndicatio ns:Asthma INHALE 1 PUFF BY MOUTH EVERY DAY 180 Each 1 07/26/19 25 Active modafinil (Provigil) 200 MG tabletIndication s:Hypersomnia due to medical condition,CARLIE (obstructive sleep apnea) Take 1 (one) tablet by mouth once daily Take one tablet daily upon waking up in the morning 30 tablet 5 08/28/19 25 Active fluticasone propionate (Flonase) 50 MCG/ACT nasal spray USE 1 SPRAY INTRANASALLY DAILY INTO EACH NOSTRIL Active OneTouch Verio test strip USE TO CHECK BLOOD SUGAR ONCE DAILY 05/03/19 25 Active hydrOXYzine HCl (Atarax) 10 MG tablet Active OXcarbazepine (Trileptal) 150 MG tablet Take 1 (one) tablet by mouth 2 times daily Active clonazePAM (KlonoPIN) 0.5 MG tablet Take 1 (one) tablet by mouth 3 times daily 07/21/19 25 Active propranolol ER 24hr (Inderal LA) 60 MG capsule Take 1 capsule every day by oral route for 30 days. 12/02/19 22 Active Rybelsus 7 MG tablet Active Active Problems Problem Noted Date Diagnosed [...] Encounters Date Type Department Care Team Description 08/27/2024 11:20 AM CDT Office Visit [facility] - Sleep Services [address] [phone] Alexandr Hayes MD Chronic obstructive pulmonary disease, unspecified COPD type (HCC) (Primary Dx); Uncomplicated asthma, unspecified asthma severity, unspecified whether persistent (HCC); Iron deficiency; Vitamin D deficiency; Hypersomnia due to medical condition; CARLIE (obstructive sleep apnea) 08/27/2024 Travel from Last 3 Months Immunizations Immunization Administration Dates Next Due INFLUENZA VACCINE, TRIV. (AF LURIA, FLUZONE TRIVALENT; 6MO+) (IIV3) 12/14/2016,11/13/2015 Covid Moderna primary monova lent 12+ yr 0.5mL 06/08/2020,05/08/2020 INFLUENZA VACCINE 12/03/2020,11/21/2018,12/01/19 18 INFLUENZA VACCINE, TRIV. (FL UZONE; FLULAVAL; FLUARIX; [...] Recorded Patient Health Questionnaire-2 Score 3 05/09/2023 [facility] Occupat ional Health - Occupational Stress [...] place to sleep or slept in a residential (including now)? No 11/12/2023 Housing Stability Vital [...] any time in the past 12 m [facility], were you homeless or living in a residential (including now)? 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 on file Not on file Last Filed Vital Signs Vital Sign Reading Time Taken Comments Blood Pressure 104/76 08/27/2024 12:02 PM CDT Pulse 77 08/27/2024 12:02 PM CDT Temperature 36.6 C (97.9 F) 12/18/2023 7:43 AM CDT Respiratory Rate 16 12/18/2023 7:43 AM CDT Oxygen Saturation 99% 12/18/2023 7:43 AM CDT Inhaled Oxygen Concentration - - Weight 87.1 kg (192 lb) 08/27/2024 12:02 PM CDT Height 167.6 cm (5' 6) 08/27/2024 12:02 PM CDT Body Mass Index 30.99 08/27/2024 12:02 PM CDT Plan of Treatment Upcoming Encounters Date Type Department Care Team (Late st Contact Info) Description 03/10/2025 10:00 AM SHUTTLE OPERATOR Office Visit [facility] - Sleep Services [address] [facility] [address] [place] [address] Alexandr Hayes MD [address] [facility] [address] [place] [address] Health Maintenance Due Date Last Done Comments COLOGUARD (AGES 45-75) - COLON CA SCREENING 1978 COLON MONITORING 1978 COLONOSCOPY - COLON CA SCREENING 1978 CT COLONOGRAPHY - COLON CA SCREENING 1978 Colorectal Cancer Screening 1978 FIT - COLON CA SCREENING 1978 FLEX SIG - COLON CA SCREENING 1978 MAMMOGRAM 1978 HIV SCREENING 1993 HEPATITIS C SCREENING 08/12/1996 DTAP/TDAP/TD VACCINES (1 - Tdap) 1997 HEPATITIS B VACCINE (1 of 3 - 19+ 3-dose series) 1997 PAP SMEAR 08/18/1999 COVID-19 VACCINE ( season) 2024 11/30/2021, 12/25/2020, 06/08/2020, Additional history exists INFLUENZA VACCINE (#1) 2024 4, 11/30/2021, 12/24/2020, Additional history exists SCREENING FOR DIABETES 12/16/2026 4, 12/15/2023, 12/14/2023, Additional history exists ZOSTER VACCINE (1 of 2) 2028 LIPID TESTING 12/13/2028 12/14/2023, 11/13/2023 HIB VACCINE Aged Out No longer eligi [...] Procedure Name Priority Date/Time Associated Diagnosis Comments GLUCOSE - POINT OF CARE Routine 12/17/2023 1:22 AM CDT LIPID PROFILE AM Draw 12/14/2023 7:07 AM CDT from Last 3 Months or Most Recently Relevant to Health Maintenance Results * (ABNORMAL) GLUCOSE - POINT OF CARE (12/17/2023 1:22 AM CDT) Pathologist [facility] Glucose WB/POC 107(H) 70 - 99 mg/dL 12/17/2023 1:28 AM CDT [facility] Specimen Type Cap Fingerstick 2023 1:28 AM T [facility] Blood BLOOD SPECIMEN / Unknown 12/17/2023 1:22 AM CDT 12/17/2023 1:28 AM CDT Samy Raygoza MD LAB - POINT OF CARE ORDERABL ES Final Result [facility] [address] [place], [place] [id number] [place] [address] * (ABNORMAL) LIPID PROFILE (12/14/2023 7:07 AM CDT) Cholesterol 180 <200 mg/dL 12/14/2023 10:29 AM CDT [facility] Triglycerides 316(H) <150 mg/dL 12/14/2023 10:29 AM CDT [facility] HDL Cholesterol 25(L) >40 mg/dL 10/25/202 4 10:29 AM CDT [facility] LDL Calculated 92 <130 mg/dL 12/14/2023 10:29 AM CDT [facility] VLDL Calculated 63(H) <=30 mg/dL 10:29 AM CDT [facility] Chol HDL Ratio 7.2(H) <4.5 12/14/2023 10:29 AM CDT [facility] LDL/HDL Ratio 3.7 <5.0 12/14/2023 10:29 AM CDT [facility] Blood BLOOD SPECIMEN / Unknown Venipuncture / Unknown 12/14/2023 7:07 AM CDT 12/14/2023 7:27 AM CDT Jerad Cox PSYCH NP-CASE MGR LAB - CHEMISTRY ORDERABL ES Final Result [facility] [address] [place] [address] from Last 3 Months or Most Recently Relevant to Health Maintenance Insurance [facility] [place] [id number] ON LICENSE OF [facility] [place] [phone] [facility] [place] [phone] Advance Directives * Full Code (Latest Code Status on File) Date Activated Date Inactivated Comments 12/13/2023 3:32 PM 12/18/2023 2:15 PM * Full Code Date Activated Date Inactivated Comments 11/12/2023 9:16 PM 11/20/2023 2:46 PM Care Teams Waiter/Waitress Cafeteria Relationship Specialty Start Date End Date Austin Longoria MD PCP - General 10/05/16
--- OUTSIDE RECORDS SUMMARY | 2024-11-10 09:19 | XMS_ITS | Encounter Summary ---
Author Organization [facility] Address [address] [place] [address] Care Team Providers Care Card Clothier Name Role Phone Austin Longoria MD Primary Care Provider [phone] Reason for Visit * Reason Onset Date Comments MEDICATION REFILL 05/01/2020 Encounter Details Date Type Department Care Team (Late st Contact Info) Description 05/01/2020 Refill [facility] Sleep Disorder [address] [address] Alexandr Hayes MD [address] [address] MEDICATION REFILL Social History Tobacco Use Types [...] of Binge Drinking Not on file 06/2019 Comments No Sex and Gender Information Value Date Recorded Sex Assigned at Not on file Legal Sex Female 5:[address] TEAM MEMBER Gender Identity Not on file Sexual Orientation Not on file 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 on file Not on file documented as of this encounter Plan of Treatment Upcoming Encounters Date Type Department Care Team (Late st Contact Info) Description 03/10/2025 10:[address] TEAM MEMBER Office Visit [facility] - Sleep Services [address] [facility] [address] [place] [phone] Alexandr Hayes MD [address] [facility] [address] [place] [address] documented as of this encounter Visit Diagnoses Diagnosis Chronic obstructive pulmonary disease, unspecified COPD type (HCC) documented in this encounter Care Teams Card Clothier Relationship Specialty Start Date End Date Austin Longoria MD PCP - General 10/05/16 documented as of this encounter
--- NOTE | 2024-11-10 09:44 | ED_ITS ---
HPI - General Adult General Chief complaint: Urogenital-Female Stated complaint: urinary burning, restlessness Time Seen by Provider: 11/10/24 08:49 History of Present Illness HPI narrative: Patient is a 44-year-old female who presents ER with restlessness and dysuria. Dysuria worsening over last couple days. Stopped cephalexin 5 days ago after having a UTI that had E coli. No fevers or chills or sweats. She is currently trying to schedule follow-up with her psychiatrist for her anxiety. No fevers or chills or sweats. No abdominal pain. Related Data Home Medications ?Medication ?Instructions ?Recorded ?Confirmed ?Last Taken ?Type fluticasone fur. 100 mcg-umeclid 1 inh inhalation [place] Y 03/31/22 10/08/24 Unknown History 62.5 mcg-vilant 25 mcg inhalat.powder (Trelegy Ellipta) levomefolate calcium 15 mg tablet 15 mg PO DAILY 03/3110/08/24 Unknown History (L-Methylfolate) propranolol 60 mg capsule,24 60 mg PO DAILY 03/31/22 0 10/08/24 Unknown History hr,extended release hydroxyzine HCl 10 mg tablet 10 mg PO TID PRN 03/25/24 10/08/24 Unknown History paliperidone 3 mg tablet,extended 6 mg PO 10/08/24 Unknown History release 24 hr Allergies Allergy/AdvReac Type Severity Reaction Status Date / Time Penicillins AdvReac Mild Rash Verified 11/10/24 08:53 Sulfa (Sulfonamide AdvReac Mild Rash Verified 11/10/24 08:53 Antibiotics) Review of Systems Review of Systems: All systems reviewed & are unremarkable except as noted in HPI and below Constitutional: Constitutional: Reports no additional constitutional complaints ENT: Reports system reviewed and no additional complaints, except as documented Cardiovascular: Cardiovascular: Reports no additional cardiovascular complaints Gastrointestinal: Gastrointestinal: Reports no additional gastrointestinal complaints Genitourinary: Genitourinary: Reports no additional female genitourinary complaints [facility] Past Medical History Medical History Cigarette nicotine dependence in remission Abnormal liver function test Restless leg syndrome Cigarette nicotine dependence without complication Insomnia Fibromyalgia (Unknown) Allergic rhinitis Bipolar 1 disorder Mild persistent asthma GERD (gastroesophageal reflux disease) Obstructive sleep apnea Chronic fatigue, unspecified Type 2 diabetes mellitus without complications Pure hyperglyceridemia Surgical History Surgical History History of hernia repair Family History Family History Father Hypertension Diabetes mellitus Hyperlipidemia Mother Hypertension Alcoholism Grandparent Cirrhosis Carcinoma of colon Cerebrovascular accident Diabetes mellitus Social History Social History Smoking status: Current some day smoker Tobacco type: e-cigarettes/vaping Second hand tobacco smoke exposure: No Alcohol intake: current Drinks per week: 1 Alcohol use details: social Substance use: never Substance use type: does not use Do You Feel Safe in your Home?: Yes Lack of Transportation: No Lack of Food: Never True Current Housing: I Have Housing Concerned About Future Housing: No Difficulty Paying Gas/Electric Bills: No Difficulty Paying for Meds: No Currently Unemployed: No Education: Master's Degree or Higher Difficulty w/ Childcare or Family Care: No Living arrangements: with family Occupation/Education: unemployed Gender identity (if verbalized by the patient): Female Sexual Orientation (if Verbalized by the Patient): Straight or Heterosexual Spiritual care concerns: No Exam Narrative: GENERAL: Well-appearing, well-nourished, and in no acute distress. HEAD: Normocephalic, atraumatic. ENT: Mucous membranes moist. CHEST: Clear to auscultation. No respiratory distress. HEART: Regular rate and rhythm. Normal peripheral pulses. ABDOMEN: Soft, nontender, nondistended. EXTREMITIES: Normal range of motion. No edema. NEURO: Alert and oriented x3. PSYCH: Normal mood and affect. Course Course Emergency Course: Patient resting comfortably. Discharge home. Will place on a few days of Macrobid. Vital Signs Vital signs: Vital Signs Temperature 97.6 F 11/10/24 08:50 Pulse Rate 91 11/10/24 08:50 Respiratory Rate 18 11/10/24 08:50 Blood Pressure 129/76 11/10/24 08:50 Pulse Oximetry 99 11/10/24 08:50 Oxygen Delivery Room Air 11/10/24 08:50 Temperature 97.6 F 11/10/24 08:50 Pulse Rate 91 11/10/24 08:50 Respiratory Rate 18 11/10/24 08:50 Blood Pressure 129/76 11/10/24 08:50 Pulse Oximetry 99 11/10/24 08:50 Oxygen Delivery Room Air 11/10/24 08:50 Medical Decision Making Vital Signs Vital Signs: Vital Signs Temperature 97.6 F 11/10/24 08:50 Pulse Rate 91 11/10/24 08:50 Respiratory Rate 18 11/10/24 08:50 Blood Pressure 129/76 11/10/24 08:50 Pulse Oximetry 99 11/10/24 08:50 Oxygen Delivery Room Air 11/10/24 08:50 Temperature 97.6 F 11/10/24 08:50 Pulse Rate 91 11/10/24 08:50 Respiratory Rate 18 11/10/24 08:50 Blood Pressure 129/76 11/10/24 08:50 Pulse Oximetry 99 11/10/24 08:50 Oxygen Delivery Room Air 11/10/24 08:50 Lab Data Labs: Lab Results 11/10/24 Range/Units 09:00 Urine Color Yellow (Yellow) Urine Appearance Clear (Clear) Urine pH 5.5 (5.0-9.0) Ur Specific [place] 1.010 (1.001-1.035) Urine Protein Negative (Negative) mg/dL Urine Glucose (UA) Negative (Negative) mg/dL Urine Ketones Negative (Negative) mg/dL Ur Blood (Man) Negative (Negative) Urine Nitrate Negative (Negative) Urine Bilirubin Negative (Negative) Urine Urobilinogen 0.2 (<2.0) mg/dL Leukocyte Esterase Rfl Trace H (Negative) CECE/UL Urine RBC 0-2 (0-2) /hpf Urine WBC 6-10 H (0-3) /hpf Ur Squamous Epith Cells None seen (Few) /hpf Urine Bacteria None seen /hpf Urine Casts 0-2 Discharge Plan Discharge Clinical Impression: UTI (urinary tract infection) Patient Disposition: Home Condition: Stable Instructions: Urinary Tract Infection in Women (ED) Additional Instructions: You should return to the emergency department if you develop severe nausea and vomiting and are unable to keep liquids down, if you develop severe back/flank or stomach pain, or if your symptoms are not clearly improving at home. Patient Language: Macedonian Prescriptions: New nitrofurantoin monohyd/m-cryst [Macrobid] 100 mg capsule 100 mg PO Q12H 5 Days Qty: 10 0RF Rx Instructions: must administer with a meal/food No Action hydroxyzine HCl 10 mg tablet 10 mg PO TID PRN propranolol 60 mg capsule,extended release 24 hr 60 mg PO DAILY Trelegy Ellipta 100-62.5-25 mcg blister with device 1 inh inhalation DAILY levomefolate calcium [L-Methylfolate] 15 mg tablet 15 mg PO DAILY paliperidone 3 mg tablet extended release 24hr 6 mg PO (DME) OneTouch Verio test strips Strip See Rx Instructions .Route Qty: 100 3RF Rx Instructions: Use to check blood sugar once a day fluticasone propionate 50 mcg/actuation spray,suspension 1 spray intranasal DAILY Qty: 48 0RF Rx Instructions: administer into each nostril pantoprazole 40 mg tablet,delayed release (DR/EC) 40 mg PO QAM Qty: 90 1RF Mounjaro 5 mg/0.5 mL pen injector 5 mg subcut WEEKLY Qty: 2 0RF Follow-up/Referrals: Austin Longoria MD [Primary Care Provider, Family Practice] - 1 Week
[2024-11-10 10:01] VITALS: BP 129/83; PULSE 87; RESP 18; O2SAT 97
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
--- OUTSIDE RECORDS SUMMARY | 2024-11-10 10:48 | XMS_ITS | Encounter Summary ---
Author Organization [facility] Address [address] [facility] [place] [address] Care Team Providers Care Suspender Maker Name Role Phone Austin Longoria MD Primary Care Provider [phone] Reason for Visit * Reason Onset Date Comments MEDICATION REFILL 05/01/2020 Encounter Details Date Type Department Care Team (Late st Contact Info) Description 05/01/2020 Refill [facility] Sleep Disorder [address] [address] Alexandr Hayes MD [address] [address] MEDICATION REFILL Social History Tobacco [...] on file Legal Sex Female 5:27 PM LIQUID 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 Gender Identity Not on file Sexual Orientation Not on file 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 on file Not on file documented as of this encounter Plan of Treatment Upcoming Encounters Date Type Department Care Team (Late st Contact Info) Description 03/10/2025 10:00 AM LIQUID YEAST SUPERVISOR Office Visit [facility] - [facility] Services [address] [facility] [address] [place] [phone] Alexandr Hayes MD [address] [facility] [address] [place] [address] documented as of this encounter Visit Diagnoses Diagnosis Chronic obstructive pulmonary disease, unspecified COPD type (HCC) documented in this encounter Care Teams Suspender Maker Relationship Specialty Start Date End Date Austin Longoria MD PCP - General 10/05/16 documented as of this encounter
--- OUTSIDE RECORDS SUMMARY | 2024-11-10 10:48 | XMS_ITS | Clinical Summary ---
Author Organization [facility] Address [address] [place] [address] Care Team Providers Care Fretted Instrument Repairer Name Role Phone Austin Longoria MD Primary Care Provider [phone] Source Comments [facility],non-owned Affiliates and Associated Physician Practices is amultiple site organization consisting of ambulatory clinics and hospital sitesin [place], [place], [place] and [place]. This disclosure is being madepursuant to the Care Everywhere program and may not contain all information available regarding this patient. Last updated 17.[facility] Allergies Active Allergy Reactions Criticality Noted Date [...] Description 08/27/2024 11:20 AM CDT Office Visit [facility] [address] [phone] Alexandr Hayes MD Chronic obstructive pulmonary disease, [...] Recorded Patient Health Questionnaire-2 Score 3 05/09/2023 [facility] [place] [facility] Occupat ional Health - Occupational Stress [...] group home (including now)? 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 Gender Identity Not on file Sexual [...] st Contact Info) Description 03/10/2025 10:00 AM ISSUING OPERATOR Office Visit [facility] [address] [facility] [address] [place] [address] Alexandr Hayes MD [address] [facility] [address] [place] [address] Health Maintenance Due Date Last [...] - 99 mg/dL 12/17/2023 1:28 AM CDT [facility] Specimen Type Cap Fingerstick 2023 1:28 AM T [facility] Blood BLOOD SPECIMEN / Unknown 12/17/2023 1:22 AM CDT 12/17/2023 1:28 AM CDT Samy Raygoza MD LAB - POINT OF CARE ORDERABL ES Final Result [facility] [address] [place], [place] [id number] [place] [address] * (ABNORMAL) LIPID PROFILE (12/14/2023 7:07 AM CDT) Cholesterol 180 <200 mg/dL 12/14/2023 10:29 AM CDT [facility] Triglycerides 316(H) <150 mg/dL 12/14/2023 10:29 AM CDT [facility] HDL Cholesterol 25(L) >40 mg/dL 10/25/202 4 10:29 AM CDT [facility] LDL Calculated 92 <130 mg/dL 12/14/2023 10:29 AM CDT [facility] VLDL Calculated 63(H) <=30 mg/dL 10:29 AM CDT [facility] Chol HDL Ratio 7.2(H) <4.5 12/14/2023 10:29 AM CDT [facility] LDL/HDL Ratio 3.7 <5.0 12/14/2023 10:29 AM CDT [facility] Blood BLOOD SPECIMEN / Unknown Venipuncture / Unknown 12/14/2023 7:07 AM CDT 12/14/2023 7:27 AM CDT Jerad Cox ASSOCIATE PATHOLOGIST-REGIONAL CONTROLLER LAB - CHEMISTRY ORDERABL ES Final Result [facility] [address] [place] [address] from Last 3 Months or Most Recently Relevant to Health Maintenance Insurance [facility] [place] [address] [facility] [place] [address] [facility] [place] [address] Advance Directives * Full Code (Latest Code Status on File) Date Activated Date Inactivated Comments 12/13/2023 3:32 PM 12/18/2023 2:15 PM * Full Code Date Activated Date Inactivated Comments 11/12/2023 9:16 PM 11/20/2023 2:46 PM Care Teams Fretted Instrument Repairer Relationship Specialty Start Date End Date Austin Longoria MD PCP - General 10/05/16
== END 2024-11-10 10:05 | disposition home or self-care (01) ==
PROVIDERS: Emergency Provider Emergency Medicine; PCP Family Medicine
DX: N39.0 Urinary tract infection, site not specified (principal); E11.9 Type 2 diabetes mellitus without complications; J45.30 Mild persistent asthma, uncomplicated; M79.7 Fibromyalgia; G47.33 Obstructive sleep apnea (adult) (pediatric); G25.81 Restless legs syndrome; R53.82 Chronic fatigue, unspecified; F31.9 Bipolar disorder, unspecified; F17.290 Nicotine dependence, other tobacco product, uncomplicated; Z79.85 Long-term (current) use of injectable non-insulin antidiabetic drugs; Z79.899 Other long term (current) drug therapy
CPT/HCPCS: 81001; 87077; 87086; 87186; 99283